=== PATIENT | male | born 1960 | race Caucasian/White ===

== ENCOUNTER 2019-07-10 13:57 | Emergency (ER) | payer OTHER ==
[~2019-07-10] VITALS: Ht 182.9 cm; Wt 63.3 kg
[~2019-07-10 13:57] MED LIST: ALEVE220 MG PO; CEFPODOXIME PR200 MG PO; CYCLOBENZAPRINE10 MG PO; IBUPROFEN600 MG PO; NAPROXEN500 MG PO; NICOTINE PATCH1 EAC1 TD; NORCO 5-325 TA1 EACH PO; PROAIR HFA8.5 GM INH
[2019-07-10] MEDS ORDERED: SPIRIVA18 MCG INH (14:11)
[2019-07-10] MEDS ORDERED: LIPITOR20 MG PO (14:11)
[2019-07-10] MEDS ORDERED: PROMETHAZINE HC25 M1 PO (15:48)
== END 2019-07-10 15:55 | disposition home or self-care (01) ==
LOC: ED 13:57
DX: K52.9 Noninfective gastroenteritis and colitis, unspecified (principal); I25.2 Old myocardial infarction; F17.200 Nicotine dependence, unspecified, uncomplicated; Z79.899 Other long term (current) drug therapy
CPT/HCPCS: 74177; 80053; 83690; 85025; 96361; 99284-25; J2270; J2765; J7030; Q9967

== ENCOUNTER 2019-11-15 14:18 | Emergency (ER) | payer OTHER ==
[~2019-11-15] VITALS: Ht 182.9 cm; Wt 63.0 kg
--- OUTSIDE RECORDS SUMMARY | ~2019-11-15 | XMS | Encounter Summary ---
Demographics + + + | Address | [address] | | | [place] [address] | + + + | Home Phone | | + + + | Preferred Language | Unknown | + + + | Marital Status | Unknown | + + + | Adventism Affiliation | 1013 | + + + | Race | Unknown | + + + | Ethnic Group | Unknown | + + + Author + + + | Author | [facility] | | | and [place] | + + + | Organization | [facility] | | | and [place] | + + + | Address | Unknown | + + + | Phone | Unavailable | + + + Support + + +---------+ + | Name | Relationship | Address | Phone | + + +---------+ + | Parisa Loyola | ECON | Unknown | | + + +---------+ + Care Team Providers + +------+ + | Care Overnight Babysitter Name | Role | Phone | + +------+ + | Isai Feng | PCP | | + +------+ + Reason for Visit +--------+ + | Reason | Comments | +--------+ + | Other | end of study | +--------+ + Encounter Details +--------+ + + + + | Date | Type | Department | Care Team | Description | +--------+ + + + + | 07/10/ | Documentati | [facility] | Yuli Guerrero, | Other (end of study) | | 2020 | on | CARDIOLOGY [facility]THE[facility] | Technologist | | | | | [address] | | | | | | [place], [place] | | | | | | [address] | | | | | | [phone] | | | +--------+ + + + + Social History + + + +--------+------+ | Tobacco Use | Types | Packs/Day | Years | Date | | | | | Used | | + + + +--------+------+ | Current Every Day | Cigarettes | 2 | 40 | | | Smoker | | | | | + + + +--------+------+ + +---+---+---+ | Smokeless Tobacco: | | | | | Never Used | | | | + +---+---+---+ + + | Comments: has tried the patches only, working on quitting, currently less than 1ppd | + + + + + + + | Alcohol Use | Drinks/Week | oz/Week | Comments | + + + + + | Yes | 6-12 Cans of beer | 6.0 - 12.0 | Frequently(more than | | | | | twice a week) | + + + + + + + + | Sex Assigned at | Date Recorded | | | | + + + | Not on file | | + + + documented as of this encounter Progress Notes Yuli Guerrero, Technologist - 07/10/2019 11:59 PM PST Cardiac Event Monitor Date of Event Monitor: 07/10/19 Referring Physician: No Patient:Isai Dolan : 1960 Age: 58 y.o. male INDICATIONS: Syncope and collapse Procedure: Continuous ambulatory ECG for the duration of 23 days 13 hours. During this rec ording, the underlying rhythm is sinus rhythm the lowest heart rate was 64 BPM, the highest heart rate 155 BPM, averaging 109 BPM. During this recording interval, there were 6 episode s of SVT the longest of which was 29 beats at 127 BPM, the fastest of which was 16 beats at 155BPM. Also, there were 2 episodes of NSVT the longest and fastest of which was 5 beats at 133BPM. No AV conduction abnormalities observed. The heart rate trends did demonstrate a n ormal circadian pattern. In the patient's diary, there was one episode of headache which co rrelated with isolated ventricular ectopy. Impressions: 1: Sinus rhythm, as described above. 2: No clinically significant arrhythmias detected. 3: No AV conduction abnormality detected. 4: There was one episode of headache which correlated with isolated ventricular ectopy. Recomendations: Clinical correlation suggested. Cally Mishra DO documented in this enco unter Plan of Treatment Not on filedocumented as of this encounter Visit Diagnoses + + | Diagnosis | + + | Syncope and collapse | + + documented in this encounter"
--- OUTSIDE RECORDS SUMMARY | ~2019-11-15 | XMS | Encounter Summary ---
Demographics + + + | Address | [address] | | | [place] [address] | + + + | Home Phone | | + + + | Preferred Language | Unknown | + + + | Marital Status | Unknown | + + + | Oriental Orthodox Affiliation | 1013 | + + + | Race | Unknown | + + + | Ethnic Group | Unknown | + + + Author + + + | Author | [facility] | | | and [place] | + + + | Organization | [facility] | | | and [place] | + + + | Address | Unknown | + + + | Phone | Unavailable | + + + Support + + +---------+ + | Name | Relationship | Address | Phone | + + +---------+ + | Parisa Jasso ECON | Unknown | | + + +---------+ + Care Team Providers + +------+ + | Care Salvage Machine Operator Name | Role | Phone | + +------+ + | Panda Ma NP | PCP | | + +------+ + Encounter Details +--------+ + + + + | Date | Type | Department | Care Team | Description | +--------+ + + + + | 12/15/ | Hospital | [facility] | [place], | COPD exacerbation | | 2015 | Encounter | [facility] | Vanna Matamoros MD | ([facility]) | | | | FUNCTION [address] | | | | | | [place], | | | | | | [place] [address] | | | | | | [phone] | | | +--------+ + + + [...] of beer | 6.0 - 12.0 | | + + + + + + + + | Sex Assigned at | Date Recorded | | | | + + + | Not on file | | + + + documented as of this encounter Medications at Time of Discharge + + + +---------+ + + | Medication | Sig | Dispensed | Refills | Start | End Date | | | | | | Date | | + + + +---------+ + + | albuterol 90 | Inhale 2 puffs into | | 0 | | | | mcg/puff inhaler | the lungs 4 times | | | | | | | daily. | | | | | + + + +---------+ + + | tiotropium | Inhale 18 mcg into | | 0 | | | | (SPIRIVA HANDIHALER) | the lungs Daily. | | | | | | 18 mcg inhalation | | | | | | | capsule | | | | | | + + + +---------+ + + | | Inhale 1 puff into | 1 each | 11 | 12/16/19 | | | fluticasone-vilanter | the lungs Daily. | | | 15 | 9 | | ol (BREO ELLIPTA) | | | | | | | 100-25 mcg/puff | | | | | | | inhaler | | | | | | + + + +---------+ + + | ibuprofen (ADVIL, | Take 400-600 mg by | | 0 | | | | MOTRIN) 200 mg | mouth every 6 hours | | | | 9 | | tablet | as needed for Pain. | | | | | + + + +---------+ + + | metoprolol | Take 50 mg by mouth | | 0 | | | | tartrate (LOPRESSOR) | 2 times daily. | | | | 9 | | 50 mg tablet | | | | | | + + + +---------+ + + documented as of this encounter Procedure Vanna Liang MD - 12/20/2014 8:43 PM PDTAssociated Order(s): PFT PULMONARY FUNCT ION TESTING ORDERSProcedure(s): PFT PULMONARY FUNCTION TESTING ORDERSPre-Procedure Diagnose( s): COPD exacerbation (HCC) PULMONARY FUNCTION TESTING METHOD: Spirometry was obtained pre and post administration of inhaled bronchodilator. Lung volumes were obtained by body plethysmography. Diffusion capacity was obtained by single br eath method and was not corrected for a measured hemoglobin. ATS standards were met. SPIROMETRY: Prior to administration of inhaled bronchodilator, FVC was normal at 4.54 L or 85% of predicted. FEV1 was mildly reduced at 2.81 L or 69% of predicted. FEV1/FVC ratio was reduced at 62%. After administration of inhaled bronchodilator, FVC decreased by 4 % to 4.35 L or 82% of predicted. FEV1 decreased by 10 % to 2.52 L or 62% of predicted. FEV1/FVC ratio was reduced at 58%. LUNG VOLUMES: Total lung capacity was normal at 6.51 L or 88% of predicted. Residual volume was normal at 1.97 L or 89% of predicted. RV/TLC ratio was normal at 30% or 99 % of predict ed. DIFFUSION CAPACITY: Diffusion capacity was severely reduced at 13.6 mL/mmHg per minute or 3 6% of predicted and was not corrected for a measured hemoglobin. IMPRESSION: Spirometry is consistent with moderate obstructive physiology. There was not a significant response to inhaled bronchodilator. Lung volume testing is normal. Diffusion cap acity is severely reduced and is not corrected for measured hemoglobin. Electronically signed by: Vanna Whipple MD 12/20/2014 20:43 [facility] CC: Panda Ma NP documented in t his encounter Plan of Treatment Not on filedocumented as of this encounter Procedures + +--------+ + + + | Procedure Name | Priori | Date/Time | Associated Diagnosis | Comments | | | ty | | | | + +--------+ + + + | PFT PULMONARY | KENA | 12/20/2014 | COPD exacerbation | Results for this | | FUNCTION TESTING | | 8:52 PM | (HCC) | procedure are in the | | ORDERS | | PDT | | results section. | + +--------+ + + + | PFT PULMONARY | KENA | 12/20/2014 | COPD exacerbation | Results for this | | FUNCTION TESTING | | 8:52 PM | (HCC) | procedure are in the | | ORDERS | | PDT | | results section. | + +--------+ + + + | PFT PULMONARY | KENA | 12/20/2014 | COPD exacerbation | Results for this | | FUNCTION TESTING | | 8:52 PM | (HCC) | procedure are in the | | ORDERS | | PDT | | results section. | + +--------+ + + + | PFT PULMONARY | KENA | 12/20/2014 | COPD exacerbation | Results for this | | FUNCTION TESTING | | 8:52 PM | ([facility]) | procedure are in the | | ORDERS | | PDT | | results section. | + +--------+ + + + | DIAGNOSTIC REPORT - | | 12/15/2014 | | | | EXTERNAL SCAN | | 12:00 AM | | | | | | PDT | | | + +--------+ + + + documented in this encounter Results PFT PULMONARY FUNCTION TESTING ORDERS Full PFT (Willie w/BD, lung volumes, diffusion)?: Yes (12/20/2014 8:52 PM PDT) + + + | Narrative | Performed At | + + + | Vanna Whipple MD 12/20/2014 20:52 PULMONARY | | | FUNCTION TESTING METHOD: Spirometry was obtained pre and post | | | administration of inhaled bronchodilator. Lung volumes were obtained | | | by body plethysmography. Diffusion capacity was obtained by single | | | breath method and was not corrected for a measured hemoglobin. | | | ATS standards were met. SPIROMETRY: Prior to administration of | | | inhaled bronchodilator, FVC was normal at 4.54 L or 85% of | | | predicted. FEV1 was mildly reduced at 2.81 L or 69% of predicted. | | | FEV1/FVC ratio was reduced at 62%. After administration of inhaled | | | bronchodilator, FVC decreased by 4 % to 4.35 L or 82% of predicted. | | | FEV1 decreased by 10 % to 2.52 L or 62% of predicted. FEV1/FVC ratio | | | was reduced at 58%. LUNG VOLUMES: Total lung capacity was | | | normal at 6.51 L or 88% of predicted. Residual volume was normal at | | | 1.97 L or 89% of predicted. RV/TLC ratio was normal at 30% or 99 % | | | of predicted. DIFFUSION CAPACITY: Diffusion capacity was severely | | | reduced at 13.6 mL/mmHg per minute or 36% of predicted and was not | | | corrected for a measured hemoglobin. IMPRESSION: Spirometry is | | | consistent with moderate obstructive physiology. There was not a | | | significant response to inhaled bronchodilator. Lung volume testing | | | is normal. Diffusion capacity is severely reduced and is not | | | corrected for measured hemoglobin. Electronically signed by: | | | Vanna Whipple MD 12/20/2014 20:43 [facility] | | | [facility] CC: Panda Ma NP | | + + + documented in this encounter Visit Diagnoses + + | Diagnosis | + + | COPD exacerbation (HCC) Obstructive chronic bronchitis with exacerbation | + + documented in this encounter Administered Medications + +--------+ +--------+------+------+ | Medication Order | MAR | Action | Dose | Rate | Site | | | Action | Date | | | | + +--------+ +--------+------+------+ | albuterol 2.5 mg/3 mL nebulizer | Given | 12/16/19 | 2.5 mg | | | | solution 2.5 mg 2.5 mg, | | 15 12:20 | | | | | Nebulization, RT Once, [facility] 12/15/14 | | PM PDT | | | | | at 1245, For 1 dose, RT will | | | | | | | administer., | | | | | | + +--------+ +--------+------+------+ +---+---+ | | | +---+---+ documented in this encounter"
--- OUTSIDE RECORDS SUMMARY | ~2019-11-15 | XMS | Encounter Summary ---
Demographics + + + | Address | [address] | | | [place] [address] | + + + | Home Phone | | + + + | Preferred Language | Unknown | + + + | Marital Status | Unknown | + + + | Advent Affiliation | 1013 | + + + | Race | Unknown | + + + | Ethnic Group | Unknown | + + + Author + + + | Author | [facility] | | | and [place] | + + + | Organization | [facility] | | | and [place] | + + + | Address | Unknown | + + + | Phone | Unavailable | + + + Support + + +---------+ + | Name | Relationship | Address | Phone | + + +---------+ + | Parisa Mcdanielugh | ECON | Unknown | | + + +---------+ + Care Team Providers + +------+ + | Care Bakery Worker Name | Role | Phone | + +------+ + | Isai Feng | PCP | | + +------+ + Encounter Details +--------+ + + + + | Date | Type | Department | Care Team | Description | +--------+ + + + + | 02/25/ | Imaging | [facility] | Provider, | | | 2019 | Exam | [facility] | Historical, MD [address] | | | | | [address] | [address] | | | | | [address] | [place] [address] | | | | | [place] [address] | | | | | | [phone] | | | +--------+ + + + [...] + + documented as of this encounter Plan of Treatment Not on filedocumented as of this encounter Procedures + +--------+ + + + | Procedure Name | Priori | Date/Time | Associated Diagnosis | Comments | | | ty | | | | + +--------+ + + + | CT CHEST W CONTRAST | Routin | 04/30/2016 | | Results for this | | | e | 12:00 AM | | procedure are in the | | | | PST | | results section. | + +--------+ + + + documented in this encounter Results CT Chest w Contrast (04/30/2016 12:00 AM PST) + + | Specimen | + + | | + + + + + | Narrative | Performed At | + + + | External films for comparison only | [facility] | | | | | No results will be in the chart. | | + + + + +---------+ + + | Performing | Address | City/State/Zipcode | Phone Number | | Organization | | | | + +---------+ + + | [facility] | | | | + +---------+ + + documented in this encounter Visit Diagnoses Not on filedocumented in this encounter"
--- OUTSIDE RECORDS SUMMARY | ~2019-11-15 | XMS | Encounter Summary ---
Demographics + + + | Address | [address] | | | [place] [address] | + + + | Home Phone | | + + + | Preferred Language | Unknown | + + + | Marital Status | Unknown | + + + | Voodoo Affiliation | 1013 | + + + | Race | Unknown | + + + | Ethnic Group | Unknown | + + + Author + + + | Author | [facility] | | | and [place] | + + + | Organization | [facility] | | | and [place] | + + + | Address | Unknown | + + + | Phone | Unavailable | + + + Support + + +---------+ + | Name | Relationship | Address | Phone | + + +---------+ + | Parisa Ruedaugh | ECON | Unknown | | + + +---------+ + Care Team Providers + +------+ + | Care Color Room Attendant Name | Role | Phone | + +------+ + | Provider Not, In System | PCP | Unavailable | + +------+ + Encounter Details +--------+ + + + + | Date | Type | Department | Care Team | Description | +--------+ + + + + | 11/09/ | Orders Only | [facility] | [place], | COPD exacerbation | | 2014 | | PULMONARY [address] | Vanna Matamoros MD | ([facility]) (Primary Dx) | | | | [place], | | | | | | [place] [address] | | | | | | [phone] | | | +--------+ + + + + Social History + +-------+ +--------+------+ | Tobacco Use | Types | Packs/Day | Years | Date | | | | | Used | | + +-------+ +--------+------+ | Never Assessed | | | | | + +-------+ +--------+------+ + + + | Sex Assigned at | Date Recorded | | | | + + + | Not on file | | + + + documented as of this encounter Plan of Treatment Not on filedocumented as of this encounter Results PFT PULMONARY FUNCTION TESTING ORDERS Full PFT ([place]oll[place] w/BD, lung volumes, diffusion)?: Yes (12/20/2014 8:52 [...] | | Vanna Whipple MD 12/20/2014 20:43 [facility] | | | [facility] CC: Panda aM NP | | + + + documented in this encounter Visit Diagnoses + + | Diagnosis | + + | COPD exacerbation (HCC) - Primary Obstructive chronic bronchitis with exacerbation | + + documented in this encounter"
--- OUTSIDE RECORDS SUMMARY | ~2019-11-15 | XMS | Encounter Summary ---
Demographics + + + | Address | [address] | | | [place] [address] | + + + | Home Phone | | + + + | Preferred Language | Unknown | + + + | Marital Status | Unknown | + + + | Christian Affiliation | 1013 | + + + | Race | Unknown | + + + | Ethnic Group | Unknown | + + + Author + + + | Author | [facility] | | | and [place] | + + + | Organization | [facility] | | | and [place] [...] Team Providers + +------+ + | Care Product Assembler Name | Role | Phone | + +------+ + | Provider Not, In System | PCP | Unavailable | + +------+ + Encounter Details +--------+ + + + + | Date | Type | Department | Care Team | Description | +--------+ + + + + | 11/16/ | Abstract | [facility] [place] | [place], | | | 2015 | | PULMONARY [address] | Vanna Matamoros MD | | | | | [place], | | | | | | [place] [address] | | | | | | [phone] | | | +--------+ + + + + Social History + + + +--------+------+ | Tobacco Use | Types | Packs/Day | Years | Date | | | | | Used | | + + + +--------+------+ | Current Every Day | Cigarettes | | | | | Smoker | | | | | + + + +--------+------+ + + | Comments: 03/01 cigarettes a day | + + + + + + + | Alcohol Use | Drinks/Week | oz/Week | Comments | + + + + + | Yes | 14-21 Cans of beer | 14.0 - 21.0 | | + + + + + + + + | Sex Assigned at | Date Recorded | | | | + + + | Not on file | | + + + documented as of this encounter Plan of Treatment Not on filedocumented as of this encounter Visit Diagnoses Not on filedocumented in this encounter"
--- OUTSIDE RECORDS SUMMARY | ~2019-11-15 | XMS | Encounter Summary ---
Demographics + + + | Address | [address] | | | [place] [address] | + + + | Home Phone | | + + + | Preferred Language | Unknown | + + + | Marital Status | Unknown | + + + | Sikhism Affiliation | 1013 | + + + | Race | Unknown | + + + | Ethnic Group | Unknown | + + + Author + + + | Author | [facility] | | | and [place] | + + + | Organization | [facility] | | | and [place] | + + + | Address | Unknown | + + + | Phone | Unavailable | + + + Support + + +---------+ + | Name | Relationship | Address | Phone | + + +---------+ + | Parisa ROBERTS | Unknown | | + + +---------+ + Care Team Providers + +------+ + | Care Mortgage Closer Name | Role | Phone | + +------+ + | Isai Feng | PCP | | + +------+ + Reason for Visit +--------+--------+ + | Reason | Onset | Comments | | | Date | | +--------+--------+ + | Other | 03/14/ | Symbicort | | | 2019 | | +--------+--------+ + Encounter Details +--------+ + + + + | Date | Type | Department | Care Team | Description | +--------+ + + + + | 03/14/ | Telephone | [facility] | Leora Bhagat | Other (Symbicort) | | 2018 | | PULMONARY [address] | MD [place] [address] | | | | | [place], | [address] [place] | | | | | [place] [address] | [place] [address] | | | | | [phone] | [phone] | | | | | | | | +--------+ + + + [...] + + documented as of this encounter Miscellaneous Notes Telephone Encounter - Conchita Christianson RN - 03/14/2019 2:26 PM PDTCalled Isai and jefferson rmed that his insurance would not cover the Symbicort so Dr Bhagat is recommending that he tr y generic fluticasone/salmeterol which is on formulary. Okay per patient. Prescription sent to [facility] in [place]. documented in this encounter Plan of Treatment Not on filedocumented as of this encounter Visit Diagnoses Not on filedocumented in this encounter"
--- OUTSIDE RECORDS SUMMARY | ~2019-11-15 | XMS | Encounter Summary ---
Demographics + + + | Address | [address] | | | [place] [address] | + + + | Home Phone | | + + + | Preferred Language | Unknown | + + + | Marital Status | Unknown | + + + | Zoroastrianism Affiliation | 1013 | + + + | Race | Unknown | + + + | Ethnic Group | Unknown | + + + Author + + + | Author | [facility] | | | and [place] | + + + | Organization | [facility] | | | and [place] | [...] Team Providers + +------+ + | Care Knife Sharpener Name | Role | Phone | + +------+ + | Panda Ma NP | PCP | | + +------+ + Reason for Visit +--------+--------+ + | Reason | Onset | Comments | | | Date | | +--------+--------+ + | Other | 12/22/ | testing | | | 2015 | | +--------+--------+ + Encounter Details +--------+ + + + + | Date | Type | Department | Care Team | Description | +--------+ + + + + | 12/22/ | Telephone | [facility] [place] | [place], | Other (testing ) | | 2014 | | PULMONARY [address] | Vanna Matamoros MD | | | | | [place], | | | | | | [place] [address] | | | | | | [phone] | | | +--------+ + + + [...] this encounter Miscellaneous Notes Telephone Encounter - Vanna Whipple MD - 12/22/2014 12:32 PM PDTThanks for kristofer nair. elephone Encounter - Abigail Tiwari - 12/22/2014 11:24 AM [facility] called to let you know as an FYI that at this time they have not been able to get Jessa an oximeter for have his overnight oximetry on roomair. Arielle states that on Sunday12-18-14 they attempted to go to [facility] to drop off an oximeter per the patients request, patient was not ho me. yesterday 12-21-14 they attempted to drop of an oximeter to the patient 2 times but were unable to catch jessa at home. Patient called [facility] today 12-22-14 and asked where they were F riday and stated that he is to busy to come in an continuous pickling line pickler the oximeter and if they are catch him at home they catch him at home. documented in this encounter Plan of Treatment Not on filedocumented as of this encounter Visit Diagnoses Not on filedocumented in this encounter"
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
--- OUTSIDE RECORDS SUMMARY | ~2019-11-15 | XMS | Encounter Summary ---
Demographics + + + | Address | [address] | | | [place] [address] | + + + | Home Phone | | + + + | Preferred Language | Unknown | + + + | Marital Status | Unknown | + + + | Congregational Affiliation | 1013 | + + + | Race | Unknown | + + + | Ethnic Group | Unknown | + + + Author + + + | Author | [facility] | | | and [place] | + + + | Organization | [facility] | | | and [place] | + + + | Address | Unknown | + + + | Phone | Unavailable | + + + Support + + +---------+ + | Name | Relationship | Address | Phone | + + +---------+ + | Parisa Milla | ECON | Unknown | | + + +---------+ + Care Team Providers + +------+ + | Care Hand Outside Cutter Name | Role | Phone | + +------+ + | Provider Not, In System | PCP | Unavailable | + +------+ + Reason for Visit + +--------+ + | Reason | Onset | Comments | | | Date | | + +--------+ + | Appointment | 11/09/ | consult | | | 2015 | | + +--------+ + Encounter Details +--------+ + + + + | Date | Type | Department | Care Team | Description | +--------+ + + + + | 11/09/ | Telephone | [facility] | [place], | Appointment | | 2015 | | PULMONARY [address] | Vanna Matamoros MD | (consult) | | | | [place], | | | | | | [place] [address] | | | | | | [phone] | | | +--------+ + + + [...] this encounter Miscellaneous Notes Telephone Encounter - Leila Tovar - 11/17/2014 3:05 PM PDTPatient is scheduledElectroni murtaza signed by Leila Tovar at 11/17/2014 3:05 PM PDTTelephone Encounter - Leslie Tiwari - 11/09/2014 2:16 PM PDTCorrection: Left voice message to schedule patient a LEAD DATA ARCHITECT con sult with Dr. Whipple. If patient is to call back please schedule in the next available w ith Fill PFTS prior. Dx: COPD Ref: Yuli GONZALEZ elephone Encounter - Abigail Tiwari - 11/09/2014 2:15 PM PDTLeft voice message to schedule patient a N P consult with Dr. Whipple. If patient is to call back please schedule in the next availa ble with Full PFTS prior. DX: COPD REF: Paty documented in this encounter Plan of Treatment Not on filedocumented as of this encounter Visit Diagnoses Not on filedocumented in this encounter"
--- OUTSIDE RECORDS SUMMARY | ~2019-11-15 | XMS | Encounter Summary ---
Demographics + + + | Address | [address] | | | [place] [address] | + + + | Home Phone | | + + + | Preferred Language | Unknown | + + + | Marital Status | Unknown | + + + | Scientology Affiliation | 1013 | + + + | Race | Unknown | + + + | Ethnic Group | Unknown | + + + Author + + + | Author | [facility] | | | and [place] | + + + | Organization | [facility] | | | and [...] Team Providers + +------+ + | Care Anesthetic Assistant Name | Role | Phone | + +------+ + | Isai Feng | PCP | | + +------+ + Reason for Visit +--------+--------+ + | Reason | Onset | Comments | | | Date | | +--------+--------+ + | Other | 07/20/ | advice only | | | 2020 | | +--------+--------+ + Encounter Details +--------+ + + + + | Date | Type | Department | Care Team | Description | +--------+ + + + + | 07/20/ | Telephone | [facility] | aClly Mishra DO | Other (advice only) | | 2020 | | CARDIOLOGY DEMETRIS | [address] | | | | | [address] | [place], [place] | | | | | [place], [place] | [address] | | | | | [address] | | | | | | [phone] | | | +--------+ + + + [...] this encounter Miscellaneous Notes Telephone Encounter - Kalani Morales, Bone Grinder - 07/21/2019 9:56 AM PDTReceived phone call from Anneliese at [facility] who advises that patient contacted [facility] to inform th at 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 Per Anneliese, patient states he "does too many things on the weekends" and will only be wearing the monitor Sunday thru Sunday. FYI. documented in this encounter Plan of Treatment Not on filedocumented as of this encounter Visit Diagnoses Not on filedocumented in this encounter
--- OUTSIDE RECORDS SUMMARY | ~2019-11-15 | XMS | Encounter Summary ---
Demographics + + + | Address | [address] | | | [place] [address] | + + + | Home Phone | | + + + | Preferred Language | Unknown | + + + | Marital Status | Unknown | + + + | Taoism Affiliation | 1013 | + + + | Race | Unknown | + + + | Ethnic Group | Unknown | + + + Author + + + | Author | [facility] | | | and [place] | + + + | Organization | [facility] | | | and [place] [...] Team Providers + +------+ + | Care Property Controller Name | Role | Phone | + +------+ + | Isai Feng | PCP | | + +------+ + Reason for Referral Diagnostic/Screening (Routine) +--------+--------+ + + + + | Status | Reason | Specialty | Diagnoses / | Referred By | Referred To | | | | | Procedures | Contact | Contact | +--------+--------+ + + + + | Closed | | Radiology | Diagnoses | Leora Bhagat | [address] | | | | | Personal | MD [place] | [address] | | | | | history of | [address] | [place], | | | | | tobacco use | [address] | [place] [address] | | | | | Procedures | [place], | Phone: | | | | | CT Chest | [place] [address] | [phone] | | | | | Lung Cancer | Phone: | Fax: | | | | | Screening | [phone] | [phone] | | | | | DOS 05/09/19 | Fax: | | | | | | | [phone] | | +--------+--------+ + + + + Reason for Visit Diagnostic/Screening (Routine) +--------+--------+ + + + + | Status | Reason | Specialty | Diagnoses / | Referred By | Referred To | | | | | Procedures | Contact | Contact | +--------+--------+ + + + + | Closed | | Radiology | Diagnoses | Leora Bhagat | [address] | | | | | Personal | MD [place] | [place] | | | | | history of | [address] | [place], | | | | | tobacco use | [address] | [place] [address] | | | | | Procedures | [place], | Phone: | | | | | CT Chest | [place] [address] | [phone] | | | | | Lung Cancer | Phone: | Fax: | | | | | Screening | [phone] | [phone] | | | | | DOS 05/09/19 | Fax: | | | | | | | [phone] | | +--------+--------+ + + + + Encounter Details +--------+ + + + + | Date | Type | Department | Care Team | Description | +--------+ + + + + | 05/09/ | Hospital | [facility] | Leora Bhagat | Personal history of | | 2019 | Encounter | MED [facility] [address] | MD [place] [address] | tobacco use | | | | [place], | [address] [place] | | | | | [place] [address] | [place] [address] | | | | | [phone] | [phone] | | | | | | | [...] + + + +---------+ + + | aspirin 325 mg | Take 325 mg by mouth | | 0 | | | | tablet | Daily. | | | | | + + + +---------+ + + | atorvaSTATin | Take 20 mg by mouth | | 0 | 10/10/20 | | | (LIPITOR) 20 mg | Daily. | | | 19 | | | tablet | | | | | | + + + +---------+ + + | CHANTIX STARTING | | | 0 | 01/29/20 | | | MONTH KINJAL 0.5 MG X | | | | 19 | | | 11 & 1 MG X 42 | | | | | | | tablet | | | | | | + + + +---------+ + + | COMBIVENT RESPIMAT | Inhale 1 puff into | | 0 | 01/29/20 | | | 20-100 MCG/ACT | the lungs 2 times | | | 19 | | | inhaler | daily. | | | | | + + + +---------+ + + | | Inhale 1 puff into | 1 each | 11 | 03/14/20 | | | fluticasone-salmeter | the lungs 2 times | | | 19 | | | ol (NEREYDA SAHU | daily. | | | | | | INHUB) 250-50 | | | | | | | mcg/puff diskus | | | | | | | inhaler | | | | | | + + + +---------+ + + | | | | 0 | 04/14/20 | | | HYDROcodone-acetamin | | | | 19 | | | ophen (NORCO) 5-325 | | | | | | | mg per tablet | | | | | | + + + +---------+ + + | Spacer/Aero-Hold | Use with MDI inhaler | 1 each | 4 | 03/10/20 | | | Chamber Bags | as needed. | | | 19 | | | MISCIndications: | | | | | | | Chronic obstructive | | | | | | | pulmonary disease, | | | | | | | unspecified COPD | | | | | | | type (HCC) | | | | | | + + + +---------+ + + | tiotropium | Inhale 18 mcg into | | 0 | | | | (SPIRIVA HANDIHALER) | the lungs Daily. | | | | | | 18 mcg inhalation | | | | | | | capsule | | | | | | + + + +---------+ + + | LORazepam (ATIVAN) | TAKE 2 TABLETS BY | | 0 | 04/12/20 | | | 1 mg tablet | MOUTH IN THE EVENING | | | 19 | 0 | | | BEFORE BED AND TAKE | | | | | | | 2 TABLETS BY MOUTH | | | | | | | ONE HOUR BEFORE | | | | | | | APPOINTMENT | | | | | + + + +---------+ + + | naproxen | Take 250 mg by mouth | | 0 | | | | (NAPROSYN) 250 mg | 2 times daily (with | | | | 0 | | tablet | breakfast & | | | | | | | dinner). | | | | | + + + +---------+ + + | SPIRIVA RESPIMAT | Inhale 2 puffs into | | 0 | 02/21/20 | | | 2.5 MCG/ACT inhaler | the lungs 2 times | | | 19 | 0 | | | daily. | | | | | + + + +---------+ + + documented as of this encounter Plan of Treatment + +---------+--------+ + + | Name | Type | Priori | Associated Diagnoses | Order Schedule | | | | ty | | | + +---------+--------+ + + | CT Chest Lung Cancer | Imaging | Routin | Personal history | 1 Occurrences | | Screening | | e | of tobacco use | starting 05/09/2019 | | | | | | until 05/09/2019 | + +---------+--------+ + + documented as of this encounter Visit Diagnoses + + | Diagnosis | + + | Personal history of tobacco use Personal history of tobacco use, presenting hazards | | to health | + + documented in this encounter"
--- OUTSIDE RECORDS SUMMARY | ~2019-11-15 | XMS | Encounter Summary ---
Demographics + + + | Address | [address] | | | [place] [address] | + + + | Home Phone | | + + + | Preferred Language | Unknown | + + + | Marital Status | Unknown | + + + | Congregation Affiliation | 1013 | + + + | Race | Unknown | + + + | Ethnic Group | Unknown | + + + Author + + + | Author | [facility] | | | and [place] | + + + | Organization | [facility] | | | and [place] [...] Team Providers + +------+ + | Care Shot Hole Driller Name | Role | Phone | + +------+ + | Yuli Feng | PCP | | + +------+ + Encounter Details +--------+ + + + + | Date | Type | Department | Care Team | Description | +--------+ + + + + | 12/27/ | Abstract | [facility] | Kelechi Zapata, | | | 2016 | | NEUROSURGERY [address] | PA-C [address] | | | | [address] | [address] [place] | | | | | [place], [place] | [place] [address] | | | | | [address] | [phone] | | | | | [phone] | | | +--------+ + + + [...]
--- OUTSIDE RECORDS SUMMARY | ~2019-11-15 | XMS | Encounter Summary ---
Demographics + + + | Address | [address] | | | [place] [address] | + + + | Home Phone | | + + + | Preferred Language | Unknown | + + + | Marital Status | Unknown | + + + | Muslim Affiliation | 1013 | + + + | Race | Unknown | + + + | Ethnic Group | Unknown | + + + Author + + + | Author | [facility] | | | and [place] | + + + | Organization | [facility] | | | and [place] | + + + | Address | Unknown | + + + | Phone | Unavailable | + + + Support + + +---------+ + | Name | Relationship | Address | Phone | + + +---------+ + | Parisa Looyla | ECON | Unknown | | + + +---------+ + Care Team Providers + +------+ + | Care Product Design Engineer Name | Role | Phone | + +------+ + | Isai Feng | PCP | | + +------+ + Encounter Details +--------+ + + + + | Date | Type | Department | Care Team | Description | +--------+ + + + + | 07/16/ | Imaging | [facility] | Provider, | | | 2020 | Exam | [facility]TER[facility] | Historical, MD [address] | | | | | IMAGING [address] | [address] | | | | | [address] | [place] [address] | | | | | [place] [address] | | | | | | [phone] | | | +--------+ + + + [...] | + +--------+ + + + | ECHO COMPLETE | Routin | 12/11/2014 | | Results for this | | | e | 12:00 AM | | procedure are in the | | | | PDT | | results section. | + +--------+ + + + documented in this encounter Results ECHO Complete (12/11/2014 12:00 AM PDT) + + | Specimen | + + [...]
--- OUTSIDE RECORDS SUMMARY | ~2019-11-15 | XMS | Encounter Summary ---
Demographics + + + | Address | [address] | | | [place] [address] | + + + | Home Phone | | + + + | Preferred Language | Unknown | + + + | Marital Status | Unknown | + + + | Latter Day Affiliation | 1013 | + + + | Race | Unknown | + + + | Ethnic Group | Unknown | + + + Author + + + | Author | [facility] | | | and [place] | + + + | Organization | [facility] | | | and [...] Team Providers + +------+ + | Care Sap Grc Security Name | Role | Phone | + +------+ + | Panda Ma NP | PCP | | + +------+ + Encounter Details +--------+ + + + + | Date | Type | Department | Care Team | Description | +--------+ + + + + | 12/15/ | Orders Only | [facility] | Conchita Christianson, | COPD (chronic | | 2015 | | PULMONARY [address] | RN | obstructive | | | | [place], | | pulmonary disease) | | | | [place] [address] | | ([facility]) | | | | [phone] | | | +--------+ + + + [...] | Diagnosis | + + | COPD (chronic obstructive pulmonary disease) (HCC) Chronic airway obstruction, not | | elsewhere classified | + + documented in this encounter"
--- OUTSIDE RECORDS SUMMARY | ~2019-11-15 | XMS | Encounter Summary ---
Demographics + + + | Address | [address] | | | [place] [address] | + + + | Home Phone | | + + + | Preferred Language | Unknown | + + + | Marital Status | Unknown | + + + | Roman Catholic Affiliation | 1013 | + + + | Race | Unknown | + + + | Ethnic Group | Unknown | + + + Author + + + | Author | [facility] | | | and [place] | + + + | Organization | [facility] | | | and [...] Team Providers + +------+ + | Care Hot Dog Vendor Name | Role | Phone | + [...] | | | | [address]IL[address] | [place] [address] | | | | | [place] [address] | | | | | | [phone] | | | +--------+ + + + [...] | + +--------+ + + + | XR CHEST 1 VIEW | Routin | 09/02/2015 | | Results for this | | | e | 12:00 AM | | procedure are in the | | | | PDT | | results section. | + +--------+ + + + documented in this encounter Results XR Chest 1 Vw (09/02/2015 12:00 AM PDT) + + | Specimen [...]
--- OUTSIDE RECORDS SUMMARY | ~2019-11-15 | XMS | Encounter Summary ---
Demographics + + + | Address | [address] | | | [place] [address] | + + + | Home Phone | | + + + | Preferred Language | Unknown | + + + | Marital Status | Unknown | + + + | Religion Affiliation | 1013 | + + + | Race | Unknown | + + + | Ethnic Group | Unknown | + + + Author + + + | Author | [facility] | | | and [place] | + + + | Organization | [facility] | | | and [place] [...] Team Providers + +------+ + | Care Mental Health Tech Name | Role | Phone | + +------+ + | Yuli Feng | PCP | | + +------+ + Encounter Details +--------+ + + + + | Date | Type | Department | Care Team | Description | +--------+ + + + + | 11/30/ | Orders Only | [facility] [place] | Cali Johnson, | Neck pain (Primary | | 2017 | | NEUROSURGERY [address] | DO [address] | Dx) | | | | [address] | [address] [place], [place] | | | | | [place], [place] | [address] | | | | | [address] | | | | | | [phone] | | | +--------+ + + + [...] | | + +---------+--------+ + + | XR Cervical Spine 4 | Imaging | Routin | Neck pain | Expected: | | or 5 Vws | | e | | 11/30/2016, Expires: | | | | | | 12/01/2017 | + +---------+--------+ + + documented as of this encounter Visit Diagnoses + + | Diagnosis | + + | Neck pain - Primary Cervicalgia | + + documented in this encounter"
--- OUTSIDE RECORDS SUMMARY | ~2019-11-15 | XMS | Encounter Summary ---
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 + | EXTERNAL LAB: CBC | Routin | 07/25/2014 | | Results for this | | | e | | | procedure are in the | | | | | | results section. | + +--------+ + + + | EXTERNAL LAB: | Routin | 07/25/2014 | | Results for this | | PROTIME INR | e | | | procedure are in the | | | | | | results section. | + +--------+ + + + | EXTERNAL LAB: EGFR | Routin | 07/25/2014 | | Results for this | | | e | | | procedure are in the | | | | | | results section. | + +--------+ + + + | EXTERNAL LAB: | Routin | 07/25/2014 | | Results for this | | CREATININE | e | | | procedure are in the | | | | | | results section. | + +--------+ + + + | RULE OUT MYOCARDIAL | Routin | 07/25/2014 | | Results for this | | INFARCTION | e | | | procedure are in the | | | | | | results section. | + +--------+ + + + | CBC WITH | Routin | 07/25/2014 | | Results for this | | DIFFERENTIAL | e | | | procedure are in the | | | | | | results section. | + +--------+ + + + | ALCOHOL | Routin | 07/25/2014 | | Results for this | | | e | | | procedure are in the | | | | | | results section. | + +--------+ + + + | COMPREHENSIVE | Routin | 07/25/2014 | | Results for this | | METABOLIC PANEL | e | | | procedure are in the | | | | | | results section. | + +--------+ + + + documented in this encounter Results External Lab: ARA (10/13/2014) + + + + + + | Component | Value | Ref Range | Performed | Pathologist | | | | | At | Signature | + + + + + + | ARA, | 4.06Comment: mass | 0 - 7.7 | EXTERNAL | | | Total, | | | LAB | | | External | | | | | + + + + + + + + | Resulting Agency Comment | + + | [facility] | + + + +---------+ + + | Performing | Address | City/State/Zipcode | Phone Number | | Organization | | | | + +---------+ + + | EXTERNAL LAB | | | | + +---------+ + + External Lab: CBC (10/13/2014) + + + + + + | Component | Value | Ref Range | Performed | Pathologist | | | | | At | Signature | + + + + + + | WBC, | 8.2 | 4.6 - 11 | EXTERNAL | | | External | | | LAB | | + + + + + + | HGB, | 14.8 | 13.5 - 16 | EXTERNAL | | | External | | | LAB | | + + + + + + | HCT, | 47.1 | 41 - 50 | EXTERNAL | | | External | | | LAB | | + + + + + + | PLT, | 209 | 140 - 440 | EXTERNAL | | | External | | | LAB | | + + + + + + | Neutrophils | 70.1 | 39 - 80 | EXTERNAL | | | %, | | | LAB | | | External | | | | | + + + + + + | Lymphocytes | 19.3 (A) | 24 - 44 | EXTERNAL | | | %, | | | LAB | | | External | | | | | + + + + + + | Monocytes | 6.6 | 0 - 12 | EXTERNAL | | | %, External | | | LAB | | + + + + + + | Eosinophils | 3.9 | 0 - 6 | EXTERNAL | | | %, | | | LAB | | | External | | | | | + + + + + + | RBC, | 4.68 (A) | 4.8 - 5.7 | EXTERNAL | | | External | | | LAB | | + + + + + + | MCV, | 100 (A) | 81 - 99 | EXTERNAL | | | External | | | LAB | | + + + + + + | RDW, | 12.6 | 10.5 - 15 | EXTERNAL | | | External | | | LAB | | + + + + + + + + | Resulting Agency Comment | + + | [facility] | + + + +---------+ + + | Performing | Address | City/State/Zipcode | Phone Number | | Organization | | | | + +---------+ + + | EXTERNAL LAB | | | | + +---------+ + + External Lab: PAMELA (10/13/2014) + +-------+ + + + | Component | Value | Ref Range | Performed | Pathologist | | | | | At | Signature | + +-------+ + + + | BUN, | 10 | 6 - 23 | EXTERNAL | | | External | | | LAB | | + +-------+ + + + + + | Resulting Agency Comment | + + | [facility] | + + + +---------+ + + | Performing | Address | City/State/Zipcode | Phone Number | | Organization | | | | + +---------+ + + | EXTERNAL LAB | | | | + +---------+ + + External Lab: Glucose (10/13/2014) + +---------+ + + + | Component | Value | Ref Range | Performed | Pathologist | | | | | At | Signature | + +---------+ + + + | Glucose, | 111 (A) | 70 - 100 | EXTERNAL | | | External | | | LAB | | + +---------+ + + + + + | Resulting Agency Comment | + + | [facility] | + + + +---------+ + + | Performing | Address | City/State/Zipcode | Phone Number | | Organization | | | | + +---------+ + + | EXTERNAL LAB | | | | + +---------+ + + External Lab: Ck, Total (10/13/2014) + +---------+ + + + | Component | Value | Ref Range | Performed | Pathologist | | | | | At | Signature | + +---------+ + + + | CK, Total, | 278 (A) | 24 - 195 | EXTERNAL | | | External | | | LAB | | + +---------+ + + + + + | Resulting Agency Comment | + + | [facility] | + + + +---------+ + + | Performing | Address | City/State/Zipcode | Phone Number | | Organization | | | | + +---------+ + + | EXTERNAL LAB | | | | + +---------+ + + External Lab: Troponin T (10/13/2014) + +--------+ + + + | Component | Value | Ref Range | Performed | Pathologist | | | | | At | Signature | + +--------+ + + + | Troponin T, | <1.010 | 0.01 | EXTERNAL | | | External | | | LAB | | + +--------+ + + + + + | Resulting Agency Comment | + + | [facility] | + + + +---------+ + + | Performing | Address | City/State/Zipcode | Phone Number | | Organization | | | | + +---------+ + + | EXTERNAL LAB | | | | + +---------+ + + External Lab: ALT (10/13/2014) + +-------+ + + + | Component | Value | Ref Range | Performed | Pathologist | | | | | At | Signature | + +-------+ + + + | ALT, | 16 | 7 - 52 | EXTERNAL | | | External | | | LAB | | + +-------+ + + + + + | Resulting Agency Comment | + + | [facility] | + + + +---------+ + + | Performing | Address | City/State/Zipcode | Phone Number | | Organization | | | | + +---------+ + + | EXTERNAL LAB | | | | + +---------+ + + External Lab: AST (10/13/2014) + +-------+ + + + | Component | Value | Ref Range | Performed | Pathologist | | | | | At | Signature | + +-------+ + + + | AST, | 26 | 13 - 39 | EXTERNAL | | | External | | | LAB | | + +-------+ + + + + + | Resulting Agency Comment | + + | [facility] | + + + +---------+ + + | Performing | Address | City/State/Zipcode | Phone Number | | Organization | | | | + +---------+ + + | EXTERNAL LAB | | | | + +---------+ + + External Lab: Alkaline Phosphatase (10/13/2014) + +-------+ + + + | Component | Value | Ref Range | Performed | Pathologist | | | | | At | Signature | + +-------+ + + + | ALP, | 86 | 30 - 136 | EXTERNAL | | | External | | | LAB | | + +-------+ + + + + + | Resulting Agency Comment | + + | [facility] | + + + +---------+ + + | Performing | Address | City/State/Zipcode | Phone Number | | Organization | | | | + +---------+ + + | EXTERNAL LAB | | | | + +---------+ + + External Lab: Bilirubin, Total (10/13/2014) + +-------+ + + + | Component | Value | Ref Range | Performed | Pathologist | | | | | At | Signature | + +-------+ + + + | Bilirubin, | 0.6 | 0 - 1.2 | EXTERNAL | | | Total, | | | LAB | | | External | | | | | + +-------+ + + + + + | Resulting Agency Comment | + + | [facility] | + + + +---------+ + + | Performing | Address | City/State/Zipcode | Phone Number | | Organization | | | | + +---------+ + + | EXTERNAL LAB | | | | + +---------+ + + External Lab: Albumin (10/13/2014) + +-------+ + + + | Component | Value | Ref Range | Performed | Pathologist | | | | | At | Signature | + +-------+ + + + | Albumin, | 4.2 | 3.5 - 5 | EXTERNAL | | | External | | | LAB | | + +-------+ + + + + + | Resulting Agency Comment | + + | [facility] | + + + +---------+ + + | Performing | Address | City/State/Zipcode | Phone Number | | Organization | | | | + +---------+ + + | EXTERNAL LAB | | | | + +---------+ + + External Lab: Protein, Total (10/13/2014) + +-------+ + + + | Component | Value | Ref Range | Performed | Pathologist | | | | | At | Signature | + +-------+ + + + | Protein, | 6.6 | 6 - 8 | EXTERNAL | | | Total, | | | LAB | | | External | | | | | + +-------+ + + + + + | Resulting Agency Comment | + + | [facility] | + + + +---------+ + + | Performing | Address | City/State/Zipcode | Phone Number | | Organization | | | | + +---------+ + + | EXTERNAL LAB | | | | + +---------+ + + External Lab: Calcium (10/13/2014) + +-------+ + + + | Component | Value | Ref Range | Performed | Pathologist | | | | | At | Signature | + +-------+ + + + | Calcium, | 9.4 | 8.4 - 10.2 | EXTERNAL | | | External | | | LAB | | + +-------+ + + + + + | Resulting Agency Comment | + + | [facility] | + + + +---------+ + + | Performing | Address | City/State/Zipcode | Phone Number | | Organization | | | | + +---------+ + + | EXTERNAL LAB | | | | + +---------+ + + External Lab: Carbon Dioxide (10/13/2014) + +-------+ + + + | Component | Value | Ref Range | Performed | Pathologist | | | | | At | Signature | + +-------+ + + + | Carbon | 29 | 19 - 31 | EXTERNAL | | | Dioxide, | | | LAB | | | External | | | | | + +-------+ + + + + + | Resulting Agency Comment | + + | [facility] | + + + +---------+ + + | Performing | Address | City/State/Zipcode | Phone Number | | Organization | | | | + +---------+ + + | EXTERNAL LAB | | | | + +---------+ + + External Lab: Chloride (10/13/2014) + +-------+ + + + | Component | Value | Ref Range | Performed | Pathologist | | | | | At | Signature | + +-------+ + + + | Chloride, | 104 | 95 - 112 | EXTERNAL | | | External | | | LAB | | + +-------+ + + + + + | Resulting Agency Comment | + + | [facility] | + + + +---------+ + + | Performing | Address | City/State/Zipcode | Phone Number | | Organization | | | | + +---------+ + + | EXTERNAL LAB | | | | + +---------+ + + External Lab: Potassium (10/13/2014) + +-------+ + + + | Component | Value | Ref Range | Performed | Pathologist | | | | | At | Signature | + +-------+ + + + | Potassium, | 4.8 | 3.6 - 5.1 | EXTERNAL | | | External | | | LAB | | + +-------+ + + + + + | Resulting Agency Comment | + + | [facility] | + + + +---------+ + + | Performing | Address | City/State/Zipcode | Phone Number | | Organization | | | | + +---------+ + + | EXTERNAL LAB | | | | + +---------+ + + External Lab: Sodium (10/13/2014) + +-------+ + + + | Component | Value | Ref Range | Performed | Pathologist | | | | | At | Signature | + +-------+ + + + | Sodium, | 137 | 132 - 143 | EXTERNAL | | | External | | | LAB | | + +-------+ + + + + + | Resulting Agency Comment | + + | [facility] | + + + +---------+ + + | Performing | Address | City/State/Zipcode | Phone Number | | Organization | | | | + +---------+ + + | EXTERNAL LAB | | | | + +---------+ + + External Lab: eGFR (10/13/2014) + +-------+ + + + | Component | Value | Ref Range | Performed | Pathologist | | | | | At | Signature | + +-------+ + + + | eGFR, | >60 | 60 - 999,999 | EXTERNAL | | | External | | | LAB | | + +-------+ + + + + + | Specimen | + + | Blood specimen | | (specimen) | + + + + | Resulting Agency Comment | + + | [facility] | + + + +---------+ + + | Performing | Address | City/State/Zipcode | Phone Number | | Organization | | | | + +---------+ + + | EXTERNAL LAB | | | | + +---------+ + + External Lab: Creatinine (10/13/2014) + +-------+ + + + | Component | Value | Ref Range | Performed | Pathologist | | | | | At | Signature | + +-------+ + + + | Creatinine, | 0.82 | 0.7 - 1.33 | EXTERNAL | | | External | | | LAB | | + +-------+ + + + + + | Specimen | + + | Blood specimen | | (specimen) | + + + + | Resulting Agency Comment | + + | [facility] | + + + +---------+ + + | Performing | Address | City/State/Zipcode | Phone Number | | Organization | | | | + +---------+ + + | EXTERNAL LAB | | | | + +---------+ + + D-Dimer (10/13/2014) + +-------+ + + + | Component | Value | Ref Range | Performed | Pathologist | | | | | At | Signature | + +-------+ + + + | D-DIMER, | 100.0 | 400.0 ng/mL | [facility] | [facility] | | E | | | [facility] | | | | | | [facility] - | | | | | | LABORATORY | | + +-------+ + + + + + | Specimen | + + | Blood specimen | | (specimen) | + + + + + + + | Performing | Address | City/State/Zipcode | Phone Number | | Organization | | | | + + + + + | [facility] | [address] | [place] | [phone] | | [facility] | | [id number], [facility] | | | - LABORATORY | | | | + + + + + Rule Out Myocardial (10/13/2014) + + + + + + | Component | Value | Ref Range | Performed | Pathologist | | | | | At | Signature | + + + + + + | MYOGLOBIN | 42 | 169 ng/mL | [facility] | | | | | [facility] | | | | | | MEDICAL | | | | | | CENTER - | | | | | | LABORATORY | | + + + + + + | CK Index | 1.5 | | [facility] | | | | | [facility] | | | | | | MEDICAL | | | | | | CENTER - | | | | | | LABORATORY | | + + + + + + | CKMB, | Negative | | [facility] | | | Total, | | | [facility] | | | External | | | MEDICAL | | | | | | CENTER - | | | | | | LABORATORY | | + + + + + + + + | Specimen | + + | | + + + + + + + | Performing | Address | City/State/Zipcode | Phone Number | | Organization | | | | + + + + + | [facility] | [address] | [place] | [phone] | | [facility] | | [id number] | | | - LABORATORY | | | | + + + + + Comprehensive Metabolic Panel (10/13/2014) + +-------+ + + + | Component | Value | Ref Range | Performed | Pathologist | | | | | At | Signature | + +-------+ + + + | Anion Gap | 9 | mmol/L | [facility] | | | [facility] | | | | | | [facility]ICAL | | | | | | CENTER - | | | | | | LABORATORY | | + +-------+ + + + | BUN/Creatin | 12.2 | | [facility] | | | ine Ratio | | | [facility] | | | | | | MEDICAL | | | | | | CENTER - | | | | | | LABORATORY | | + +-------+ + + + | Globulin | 2.4 | | [facility] | | | | | | [facility] | | | | | | MEDICAL | | | | | | CENTER - | | | | | | LABORATORY | | + +-------+ + + + | Albumin/Zahira | 1.8 | | [facility] | | | bulin Ratio | | | [facility] | | | | | | MEDICAL | | | | | | CENTER - | | | | | | LABORATORY | | + +-------+ + + + + + | Specimen | + + | Blood specimen | | (specimen) | + + + + + + + | Performing | Address | City/State/Zipcode | Phone Number | | Organization | | | | + + + + + | [facility] | [address] | [place] | [phone] | | [facility] | | [id number] | | | - LABORATORY | | | | + + + + + CBC with Differential (10/13/2014) + +-------+ + + + | Component | Value | Ref Range | Performed | Pathologist | | | | | At | Signature | + +-------+ + + + | MCH | 32.0 | pg | | | + +-------+ + + + | M[facility]C | 31.0 | % | | | + +-------+ + + + | % Basophils | 0.1 | % | | | + +-------+ + + + | Erythrocyte | 2 | mm/hr | | | | | | | | | | Sedimentati | | | | | | on Rate | | | | | + +-------+ + + + + + | Specimen | + + | Blood specimen | | (specimen) | + + External Lab: CBC (07/25/2014 1:00 AM PDT) + +-------+ + + + | Component | Value | Ref Range | Performed | Pathologist | | | | | At | Signature | + +-------+ + + + | PLT, | 256 | 40 - 440 | EXTERNAL | | | External | | | LAB | | + +-------+ + + + + + | Resulting Agency Comment | + + | [facility] | + + + +---------+ + + | Performing | Address | City/State/Zipcode | Phone Number | | Organization | | | | + +---------+ + + | EXTERNAL LAB | | | | + +---------+ + + External Lab: PTT (07/25/2014) + +-------+ + + + | Component | Value | Ref Range | Performed | Pathologist | | | | | At | Signature | + +-------+ + + + | PTT, | 28.5 | 22.9 - 41.3 | EXTERNAL | | | External | | | LAB | | + +-------+ + + + + + | Resulting Agency Comment | + + | [facility] | + + + +---------+ + + | Performing | Address | City/State/Zipcode | Phone Number | | Organization | | | | + +---------+ + + | EXTERNAL LAB | | | | + +---------+ + + External Lab: CKMB (07/25/2014) + + + + + + | Component | Value | Ref Range | Performed | Pathologist | | | | | At | Signature | + + + + + + | CKMB, | 1.68Comment: Mass | 0 - 4.94 | EXTERNAL | | | Total, | | | LAB | | | External | | | | | + + + + + + + + | Resulting Agency Comment | + + | [facility] | + + + +---------+ + + | Performing | Address | City/State/Zipcode | Phone Number | | Organization | | | | + +---------+ + + | EXTERNAL LAB | | | | + +---------+ + + External Lab: Ck, Total (07/25/2014) + +-------+ + + + | Component | Value | Ref Range | Performed | Pathologist | | | | | At | Signature | + +-------+ + + + | CK, Total, | 100 | 24 - 195 | EXTERNAL | | | External | | | LAB | | + +-------+ + + + + + | Resulting Agency Comment | + + | [facility] | + + + +---------+ + + | Performing | Address | City/State/Zipcode | Phone Number | | Organization | | | | + +---------+ + + | EXTERNAL LAB | | | | + +---------+ + + External Lab: Troponin T (07/25/2014) + +--------+ + + + | Component | Value | Ref Range | Performed | Pathologist | | | | | At | Signature | + +--------+ + + + | Troponin T, | <0.010 | 0.01 | EXTERNAL | | | External | | | LAB | | + +--------+ + + + + + | Resulting Agency Comment | + + | [facility] | + + + +---------+ + + | Performing | Address | City/State/Zipcode | Phone Number | | Organization | | | | + +---------+ + + | EXTERNAL LAB | | | | + +---------+ + + External Lab: Magnesium (07/25/2014) + +-------+ + + + | Component | Value | Ref Range | Performed | Pathologist | | | | | At | Signature | + +-------+ + + + | Magnesium, | 2.1 | 1.7 - 2.5 | EXTERNAL | | | External | | | LAB | | + +-------+ + + + + + | Resulting Agency Comment | + + | [facility] | + + + +---------+ + + | Performing | Address | City/State/Zipcode | Phone Number | | Organization | | | | + +---------+ + + | EXTERNAL LAB | | | | + +---------+ + + External Lab: CBC (07/25/2014) + +---------+ + + + | Component | Value | Ref Range | Performed | Pathologist | | | | | At | Signature | + +---------+ + + + | WBC, | 7.4 | 4.5 - 11 | EXTERNAL | | | External | | | LAB | | + +---------+ + + + | HGB, | 15.0 | 13.5 - 18 | EXTERNAL | | | External | | | LAB | | + +---------+ + + + | HCT, | 46.3 | 41 - 50 | EXTERNAL | | | External | | | LAB | | + +---------+ + + + | Neutrophils | 61.6 | 39 - 80 | EXTERNAL | | | %, | | | LAB | | | External | | | | | + +---------+ + + + | Lymphocytes | 33.2 | 24 - 44 | EXTERNAL | | | %, | | | LAB | | | External | | | | | + +---------+ + + + | Monocytes | 6.7 | 0 - 12 | EXTERNAL | | | %, External | | | LAB | | + +---------+ + + + | Eosinophils | 7.5 (A) | 0 - 6 | EXTERNAL | | | %, | | | LAB | | | External | | | | | + +---------+ + + + | RBC, | 4.72 | 4.3 - 5.7 | EXTERNAL | | | External | | | LAB | | + +---------+ + + + | MCV, | 98 | 81 - 99 | EXTERNAL | | | External | | | LAB | | + +---------+ + + + | RDW, | 12.1 | 10.5 - 15 | EXTERNAL | | | External | | | LAB | | + +---------+ + + + + + | Resulting Agency Comment | + + | [facility] | + + + +---------+ + + | Performing | Address | City/State/Zipcode | Phone Number | | Organization | | | | + +---------+ + + | EXTERNAL LAB | | | | + +---------+ + + External Lab: Nilsa NORIEGA (07/25/2014) + +-------+ + + + | Component | Value | Ref Range | Performed | Pathologist | | | | | At | Signature | + +-------+ + + + | INR, | 1.0 | | EXTERNAL | | | External | | | LAB | | + +-------+ + + + | PT, | 13.7 | | EXTERNAL | | | External | | | LAB | | + +-------+ + + + + + | Specimen | + + | Blood specimen | | (specimen) | + + + + | Resulting Agency Comment | + + | [facility] | + + + +---------+ + + | Performing | Address | City/State/Zipcode | Phone Number | | Organization | | | | + +---------+ + + | EXTERNAL LAB | | | | + +---------+ + + Ethanol (07/25/2014) + +---------+ + + + | Component | Value | Ref Range | Performed | Pathologist | | | | | At | Signature | + +---------+ + + + | ALCOHOL, | 221 (A) | 10 mg/dL | [facility] | | | SERUM/PLASM | | | [facility] | | | A | | | MEDICAL | | | | | | CENTER - | | | | | | LABORATORY | | + +---------+ + + + + + | Specimen | + + | Blood specimen | | (specimen) | + + + + + + + | Performing | Address | City/State/Zipcode | Phone Number | | Organization | | | | + + + + + | [facility] | [address] | [place], [place] | | | [facility] | | [id number] | | | - LABORATORY | | | | + + + + + External Lab: PAMELA (07/25/2014) + +-------+ + + + | Component | Value | Ref Range | Performed | Pathologist | | | | | At | Signature | + +-------+ + + + | BUN, | 10 | 6 - 23 | EXTERNAL | | | External | | | LAB | | + +-------+ + + + + + | Resulting Agency Comment | + + | [facility] | + + + +---------+ + + | Performing | Address | City/State/Zipcode | Phone Number | | Organization | | | | + +---------+ + + | EXTERNAL LAB | | | | + +---------+ + + External Lab: Glucose (07/25/2014) + +-------+ + + + | Component | Value | Ref Range | Performed | Pathologist | | | | | At | Signature | + +-------+ + + + | Glucose, | 94 | 70 - 100 | EXTERNAL | | | External | | | LAB | | + +-------+ + + + + + | Resulting Agency Comment | + + | [facility] | + + + +---------+ + + | Performing | Address | City/State/Zipcode | Phone Number | | Organization | | | | + +---------+ + + | EXTERNAL LAB | | | | + +---------+ + + External Lab: ALT (07/25/2014) + +-------+ + + + | Component | Value | Ref Range | Performed | Pathologist | | | | | At | Signature | + +-------+ + + + | ALT, | 16 | 7 - 52 | EXTERNAL | | | External | | | LAB | | + +-------+ + + + + + | Resulting Agency Comment | + + | [facility] | + + + +---------+ + + | Performing | Address | City/State/Zipcode | Phone Number | | Organization | | | | + +---------+ + + | EXTERNAL LAB | | | | + +---------+ + + External Lab: AST (07/25/2014) + +-------+ + + + | Component | Value | Ref Range | Performed | Pathologist | | | | | At | Signature | + +-------+ + + + | AST, | 20 | 13 - 39 | EXTERNAL | | | External | | | LAB | | + +-------+ + + + + + | Resulting Agency Comment | + + | [facility] | + + + +---------+ + + | Performing | Address | City/State/Zipcode | Phone Number | | Organization | | | | + +---------+ + + | EXTERNAL LAB | | | | + +---------+ + + External Lab: Alkaline Phosphatase (07/25/2014) + +-------+ + + + | Component | Value | Ref Range | Performed | Pathologist | | | | | At | Signature | + +-------+ + + + | ALP, | 89 | 30 - 129 | EXTERNAL | | | External | | | LAB | | + +-------+ + + + + + | Resulting Agency Comment | + + | [facility] | + + + +---------+ + + | Performing | Address | City/State/Zipcode | Phone Number | | Organization | | | | + +---------+ + + | EXTERNAL LAB | | | | + +---------+ + + External Lab: Bilirubin, Total (07/25/2014) + +-------+ + + + | Component | Value | Ref Range | Performed | Pathologist | | | | | At | Signature | + +-------+ + + + | Bilirubin, | 0.4 | 0 - 1.2 | EXTERNAL | | | Total, | | | LAB | | | External | | | | | + +-------+ + + + + + | Resulting Agency Comment | + + | [facility] | + + + +---------+ + + | Performing | Address | City/State/Zipcode | Phone Number | | Organization | | | | + +---------+ + + | EXTERNAL LAB | | | | + +---------+ + + External Lab: Albumin (07/25/2014) + +-------+ + + + | Component | Value | Ref Range | Performed | Pathologist | | | | | At | Signature | + +-------+ + + + | Albumin, | 4.5 | 3.5 - 5 | EXTERNAL | | | External | | | LAB | | + +-------+ + + + + + | Resulting Agency Comment | + + | [facility] | + + + +---------+ + + | Performing | Address | City/State/Zipcode | Phone Number | | Organization | | | | + +---------+ + + | EXTERNAL LAB | | | | + +---------+ + + External Lab: Protein, Total (07/25/2014) + +-------+ + + + | Component | Value | Ref Range | Performed | Pathologist | | | | | At | Signature | + +-------+ + + + | Protein, | 7.0 | 6 - 8 | EXTERNAL | | | Total, | | | LAB | | | External | | | | | + +-------+ + + + + + | Resulting Agency Comment | + + | [facility] | + + + +---------+ + + | Performing | Address | City/State/Zipcode | Phone Number | | Organization | | | | + +---------+ + + | EXTERNAL LAB | | | | + +---------+ + + External Lab: Calcium (07/25/2014) + +-------+ + + + | Component | Value | Ref Range | Performed | Pathologist | | | | | At | Signature | + +-------+ + + + | Calcium, | 9.2 | 8.4 - 10.2 | EXTERNAL | | | External | | | LAB | | + +-------+ + + + + + | Resulting Agency Comment | + + | [facility] | + + + +---------+ + + | Performing | Address | City/State/Zipcode | Phone Number | | Organization | | | | + +---------+ + + | EXTERNAL LAB | | | | + +---------+ + + External Lab: Carbon Dioxide (07/25/2014) + +-------+ + + + | Component | Value | Ref Range | Performed | Pathologist | | | | | At | Signature | + +-------+ + + + | Carbon | 23 | 19 - 31 | EXTERNAL | | | Dioxide, | | | LAB | | | External | | | | | + +-------+ + + + + + | Resulting Agency Comment | + + | [facility] | + + + +---------+ + + | Performing | Address | City/State/Zipcode | Phone Number | | Organization | | | | + +---------+ + + | EXTERNAL LAB | | | | + +---------+ + + External Lab: Chloride (07/25/2014) + +-------+ + + + | Component | Value | Ref Range | Performed | Pathologist | | | | | At | Signature | + +-------+ + + + | Chloride, | 105 | 95 - 112 | EXTERNAL | | | External | | | LAB | | + +-------+ + + + + + | Resulting Agency Comment | + + | [facility] | + + + +---------+ + + | Performing | Address | City/State/Zipcode | Phone Number | | Organization | | | | + +---------+ + + | EXTERNAL LAB | | | | + +---------+ + + External Lab: Potassium (07/25/2014) + +-------+ + + + | Component | Value | Ref Range | Performed | Pathologist | | | | | At | Signature | + +-------+ + + + | Potassium, | 3.8 | 3.6 - 5.1 | EXTERNAL | | | External | | | LAB | | + +-------+ + + + + + | Resulting Agency Comment | + + | [facility] | + + + +---------+ + + | Performing | Address | City/State/Zipcode | Phone Number | | Organization | | | | + +---------+ + + | EXTERNAL LAB | | | | + +---------+ + + External Lab: Sodium (07/25/2014) + +-------+ + + + | Component | Value | Ref Range | Performed | Pathologist | | | | | At | Signature | + +-------+ + + + | Sodium, | 140 | 132 - 143 | EXTERNAL | | | External | | | LAB | | + +-------+ + + + + + | Resulting Agency Comment | + + | [facility] | + + + +---------+ + + | Performing | Address | City/State/Zipcode | Phone Number | | Organization | | | | + +---------+ + + | EXTERNAL LAB | | | | + +---------+ + + External Lab: eGFR (07/25/2014) + +-------+ + + + | Component | Value | Ref Range | Performed | Pathologist | | | | | At | Signature | + +-------+ + + + | eGFR, | >60 | 60 - 999,999 | EXTERNAL | | | External | | | LAB | | + +-------+ + + + + + | Specimen | + + | Blood specimen | | (specimen) | + + + + | Resulting Agency Comment | + + | [facility] | + + + +---------+ + + | Performing | Address | City/State/Zipcode | Phone Number | | Organization | | | | + +---------+ + + | EXTERNAL LAB | | | | + +---------+ + + External Lab: Creatinine (07/25/2014) + +-------+ + + + | Component | Value | Ref Range | Performed | Pathologist | | | | | At | Signature | + +-------+ + + + | Creatinine, | 0.75 | 0.7 - 1.33 | EXTERNAL | | | External | | | LAB | | + +-------+ + + + + + | Specimen | + + | Blood specimen | | (specimen) | + + + + | Resulting Agency Comment | + + | [facility] | + + + +---------+ + + | Performing | Address | City/State/Zipcode | Phone Number | | Organization | | | | + +---------+ + + | EXTERNAL LAB | | | | + +---------+ + + CBC with Differential (07/25/2014) + +-------+ + + + | Component | Value | Ref Range | Performed | Pathologist | | | | | At | Signature | + +-------+ + + + | MCH | 32.0 | pg | | | + +-------+ + + + | MCHC | 32.0 | % | | | + +-------+ + + + | % Basophils | 1.0 | % | | | + +-------+ + + + + + | Specimen | + + | Blood specimen | | (specimen) | + + Rule Out Myocardial (07/25/2014) + + + + + + | Component | Value | Ref Range | Performed | Pathologist | | | | | At | Signature | + + + + + + | MYOGLOBIN | 21 (A) | 28 - 72 ng/mL | [facility] | [facility] | | | | | [facility] | | | | | [facility] - | | | | | | LABORATORY | | + + + + + + | CK Index | 1.9 | | [facility] | | [facility] | | | | | | [facility] | | | | | | [facility] - | | | | | | LABORATORY | | + + + + + + | CKMB, | Negative | | [facility] | | | Total, | | | [facility] | | | External | | | MEDICAL | | | | | | CENTER - | | | | | | LABORATORY | | + + + + + + + + | Specimen | + + | | + + + + + + + | Performing | Address | City/State/Zipcode | Phone Number | | Organization | | | | + + + + + | [facility] | [address] | [place] | | | [facility] | | [address], [facility] | | | - LABORATORY | | | | + + + + + Comprehensive Metabolic Panel (07/25/2014) + +-------+ + + + | Component | Value | Ref Range | Performed | Pathologist | | | | | At | Signature | + +-------+ + + + | Anion Gap | 17 | mmol/L | [facility] | | | | | | [facility] | | | | | | [facility] - | | | | | | LABORATORY | | + +-------+ + + + | BUN/Creatin | 13.3 | | [facility] | | | ine Ratio | | | [facility] | | | | | | [facility] | | | | | | CENTER - | | | | | | LABORATORY | | + +-------+ + + + | Globulin | 2.5 | | [facility] | | | | [facility] | | | | | [facility] | | | | | | C[facility] - | | | | | | LABORATORY | | + +-------+ + + + | Albumin/Zahira | 1.8 | | [facility] | | | bulin Ratio | | | [facility] | | | [facility] | | [facility] | | | | | | C[facility] - | | | | | | LABORATORY | | + +-------+ + + + + + | Specimen | + + | Blood specimen | | (specimen) | + + + + + + + | Performing | Address | City/State/Zipcode | Phone Number | | Organization | | | | + + + + + | [facility] | [address] | [place] | | | [facility] | | [address], [facility] | | | - LABORATORY | | | | + + + + + documented in this encounter Visit Diagnoses + + | Diagnosis | + + | COPD (chronic obstructive pulmonary disease) (HCC) - Primary Chronic airway | | obstruction, not elsewhere classified | + + | S/P partial lobectomy of lung Other postprocedural status | + + | Tobacco abuse Tobacco use disorder | + + documented in this encounter"
--- OUTSIDE RECORDS SUMMARY | ~2019-11-15 | XMS | Encounter Summary ---
Demographics + + + | Address | [address] | | | [place] [address] | + + + | Home Phone | | + + + | Preferred Language | Unknown | + + + | Marital Status | Unknown | + + + | Congregation Affiliation | 1013 | + + + | Race | Unknown | + + + | Ethnic Group | Unknown | + + + Author + + + | Author | [facility] | | | and [place] | + + + | Organization | [facility] | | | and [place] [...] Team Providers + +------+ + | Care Steam Hoist Operator Name | Role | Phone | + +------+ + | Panda Ma NP | PCP | | + +------+ + Reason for Visit Diagnostic/Screening (Routine) +--------+--------+ + + + + | Status | Reason | Specialty | Diagnoses / | Referred By | Referred To | | | | | Procedures | Contact | Contact | +--------+--------+ + + + + | Closed | | Radiology | Procedures | Provider, | | | | | | CT | Historical, | | | | | | Cervical | [address] | | | | | | Spine wo | [address] | | | | | | Contrast | [place] | | | | | | | [address] | | +--------+--------+ + + + + Encounter Details +--------+ + + + + | Date | Type | Department | Care Team | Description | +--------+ + + + + | 11/24/ | Imaging | [facility] | Provider, | | | 2017 | Exam | [facility] | Historical, [address] | | | | | IM[address] | [address] [place] | | | | | [address] [place] | [place] [address] | | | | | [place] [address] | | | | | | [phone] | | | +--------+ + + + [...] + +--------+ + + + | CT CERVICAL SPINE WO | Routin | 04/28/2016 | | Results for this | | CONTRAST | e | 2:35 PM | | procedure are in the | | | | PST | | results section. | + +--------+ + + + documented in this encounter Results CT Cervical Spine wo Contrast (04/28/2016 2:35 PM PST) + + | Specimen | + + | | + + + + + | Narrative | Performed At | + + + | External films for comparison only - no result from [facility]. | [facility] | + + + + +---------+ + + | Performing | Address | City/State/Zipcode | Phone Number | | Organization | | | | + +---------+ + + | [facility] | | | | + +---------+ + + documented in this encounter Visit Diagnoses Not on filedocumented in this encounter"
--- OUTSIDE RECORDS SUMMARY | ~2019-11-15 | XMS | Encounter Summary ---
Demographics + + + | Address | [address] | | | [place] [address] | + + + | Home Phone | | + + + | Preferred Language | Unknown | + + + | Marital Status | Unknown | + + + | Sabianist Affiliation | 1013 | + + + | Race | Unknown | + + + | Ethnic Group | Unknown | + + + Author + + + | Author | [facility] | | | and [place] | + + + | Organization | [facility] | | | and [...] Team Providers + +------+ + | Care Ab Initio Etl Developer Name | Role | Phone | + [...] | | | | [address] | [place] [address] | | | | | [place] [address] | | | | | | [phone] | | | +--------+ + + + [...] XR CHEST 1 VIEW | Routin | 04/28/2016 | | Results for this | | | e | 12:00 AM | | procedure are in the | | | | PST | | results section. | + +--------+ + + + documented in this encounter Results XR Chest 1 Vw (04/28/2016 12:00 AM PST) + + | Specimen [...]
--- OUTSIDE RECORDS SUMMARY | ~2019-11-15 | XMS | Encounter Summary ---
Demographics + + + | Address | [address] | | | [place] [address] | + + + | Home Phone | | + + + | Preferred Language | Unknown | + + + | Marital Status | Unknown | + + + | Yazidism Affiliation | 1013 | + + + | Race | Unknown | + + + | Ethnic Group | Unknown | + + + Author + + + | Author | [facility] | | | and [place] | + + + | Organization | [facility] | | | and [...] Team Providers + +------+ + | Care Egg Grader Name | Role | Phone | + +------+ + | Isai Feng | PCP | | + +------+ + Reason for Visit +--------+ + | Reason | Comments | +--------+ + | Other | 4 week monitor | +--------+ + Evaluate & Treat (Routine) +--------+--------+ + + + + | Status | Reason | Specialty | Diagnoses / | Referred By | Referred To | | | | | Procedures | Contact | Contact | +--------+--------+ + + + + | Closed | | Cardiology | Diagnoses | Mishra, | Vic | | | | | Syncope and | DO Cally | Cardiology | | | | | collapse 4 | [address] | [place] | | | | | week | [address] | [address] | | | | | Procedures | [place] | [address] | | | | | UT XTRNL PT | [place] | [address] | | | | | ACTIVTD ECG | [address] | [place] | | | | | DWNLD W/R&I | Phone: | [address] | | | | | </30 DAYS | [phone] | Phone: | | | | | UT EXT | Fax: | [phone] | | | | | ECG,PT | [phone] | Fax: | | | | | DEMAND | | [phone] | | | | | EVENT, SYMPT | | | | | | | MEMORY | | | | | | | LOOP, RECORD | | | | | | | UT XTRNL | | | | | | | MOBILE CV | | | | | | | TELEMETRY | | | | | | | W/I&REPORT | | | | | | | 30 DAYS CR | | | | | | | EVENT | | | | | | | MONITOR | | | +--------+--------+ + + + + Encounter Details +--------+ + + + + | Date | Type | Department | Care Team | Description | +--------+ + + + + | 07/10/ | Procedure | [facility] | Cally Mishra DO | Syncope, unspecified | | 2020 | visit | [facility]IOLOGY [place] | [address] | syncope type | | | | [address] | [place], [place] | | | | | [place] [address] | [address] | | | | | [place], [place] | | | | | | [address] | | | | | | [phone] | | | +--------+ + + + [...] documented as of this encounter Progress Notes Beatrice Cortes CMA - 07/10/2019 3:00 PM PST4 week cardiac event monitor placed on patie nt. EOB/Billing information discussed. Instructions given and understood.Electronically sign ed by Beatrice Cortes CMA at 07/10/2019 10:48 AM PSTdocumented in this encounter Plan of Treatment Not on filedocumented as of this encounter Visit Diagnoses + + | Diagnosis | + + | Syncope, unspecified syncope type | + + documented in this encounter"
--- OUTSIDE RECORDS SUMMARY | ~2019-11-15 | XMS | Encounter Summary ---
Demographics + + + | Address | [address] | | | [place] [address] | + + + | Home Phone | | + + + | Preferred Language | Unknown | + + + | Marital Status | Unknown | + + + | Shinto Affiliation | 1013 | + + + | Race | Unknown | + + + | Ethnic Group | Unknown | + + + Author + + + | Author | [facility] | | | and [place] | + + + | Organization | [facility] | | | and [...] Team Providers + +------+ + | Care Director General Name | Role | Phone | + +------+ + | Isai Feng PCP | | + +------+ + Reason for Visit +--------+--------+ + | Reason | Onset | Comments | | | Date | | +--------+--------+ + | Other | 05/13/ | | | | 2019 | | +--------+--------+ + Encounter Details +--------+ + + + + | Date | Type | Department | Care Team | Description | +--------+ + + + + | 05/13/ | Telephone | [facility] | Leora Bhagat | Other | | 2019 | | PULMONARY [address] | [address] | | | | | [place], | [address] [place] | | | | | [place] [address] | [place] [address] | | | | | [phone] | [phone] | | | | | | | [...] Telephone Encounter - Conchita Christianson RN - 05/13/2019 3:46 PM PSTCalled Isai to ask i f he was planning to return for follow up with Dr Bhagat as he cancelled his chest CT and is not having a sleep study although he did see Dr Blanchard. He did not answer his phone so left a message asking him to return the call. Electronically signed by Conchita Christianson RN at 3:48 PM PSTdocumented in this encounter Plan of Treatment Not on filedocumented as of this encounter Visit Diagnoses Not on filedocumented in this encounter"
--- OUTSIDE RECORDS SUMMARY | ~2019-11-15 | XMS | Encounter Summary ---
Demographics + + + | Address | [address] | | | [place] [address] | + + + | Home Phone | | + + + | Preferred Language | Unknown | + + + | Marital Status | Unknown | + + + | Rastafari Affiliation | 1013 | + + + | Race | Unknown | + + + | Ethnic Group | Unknown | + + + Author + + + | Author | [facility] | | | and [place] | + + + | Organization | [facility] | | | and [place] | [...] Team Providers + +------+ + | Care Java Development Team Lead Name | Role | Phone | + [...] | | | | | | CT Head wo | Historical, | | | | | | Emile | [address] | | | | | | | [address] | | | | | | | [place] | | | | | | | [address] | | +--------+--------+ + + + + Encounter Details +--------+ + + + + | Date | Type | Department | Care Team | Description | +--------+ + + + + | 11/24/ | Imaging | [facility] | Provider, | | | 2017 | Exam | [facility] | MD Vasiliy Lynn | | | | | IMAGING [address] | [address] [place] | | | | | [address] [place] | [place] [address] | | | | | [place] [address] | | | | | | [phone] | | | +--------+ + + + [...] + +--------+ + + + | CT HEAD WO CONTRAST | Routin | 04/28/2016 | | Results for this | | | e | 2:50 PM | | procedure are in the | | | | PST | | results section. | + +--------+ + + + documented in this encounter Results CT Head wo Contrast (04/28/2016 2:50 PM PST) + + | Specimen | [...]
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
--- OUTSIDE RECORDS SUMMARY | ~2019-11-15 | XMS | Clinical Summary ---
Demographics + + + | Address | [address] | | | [place] [address] | + + + | Home Phone | | + + + | Preferred Language | Unknown | + + + | Marital Status | Unknown | + + + | Muslim Affiliation | 1013 | + + + | Race | Unknown | + + + | Ethnic Group | Unknown | + + + Author + + + | Author | [facility] | | | and [place] | + + + | Organization | [facility] | | | and [...] Team Providers + +------+ + | Care Laundry Manager Name | Role | Phone | + +------+ + | Isai Feng | PCP | | + +------+ + Allergies No Known Allergies Medications + + + +---------+------+------+-------+ | Medication | Sig | Dispensed | Refills | Star | End | Statu | | | | | | t | Date | s | | | | | | Date | | | + + + +---------+------+------+-------+ | albuterol 90 | Inhale 2 puffs into | | 0 | | | Activ | | mcg/puff inhaler | the lungs 4 times | | | | | e | | | daily. | | | | | | + + + +---------+------+------+-------+ | tiotropium | Inhale 18 mcg into | | 0 | | | Activ | | (SPIRIVA HANDIHALER) | the lungs Daily. | | | | | e | | 18 mcg inhalation | | | | | | | | capsule | | | | | | | + + + +---------+------+------+-------+ | aspirin 325 mg | Take 325 mg by mouth | | 0 | | | Activ | | tablet | Daily. | | | | | e | + + + +---------+------+------+-------+ | atorvaSTATin | Take 20 mg by mouth | | 0 | 10/1 | | Activ | | (LIPITOR) 20 mg | Daily. | | | 0/20 | | e | | tablet | | | | 19 | | | + + + +---------+------+------+-------+ | CHANTIX STARTING | | | 0 | 09/1 | | Activ | | MONTH KINJAL 0.5 MG X | | | | 7/20 | | e | | 11 & 1 MG X 42 | | | | 19 | | | | tablet | | | | | | | + + + +---------+------+------+-------+ | COMBIVENT RESPIMAT | Inhale 1 puff into | | 0 | 09/1 | | Activ | | 20-100 MCG/ACT | the lungs 2 times | | | 20 | | e | | inhaler | daily. | | | 19 | | | + + + +---------+------+------+-------+ | Spacer/Aero-Hold | Use with MDI inhaler | 1 each | 4 | 10/2 | | Activ | | Chamber Bags | as needed. | | | 8/20 | | e | | MISCIndications: | | | | 19 | | | | Chronic obstructive | | | | | | | | pulmonary disease, | | | | | | | | unspecified COPD | | | | | | | | type (HCC) | | | | | | | + + + +---------+------+------+-------+ | | Inhale 1 puff into | 1 each | 11 | 11/0 | | Activ | | fluticasone-salmeter | the lungs 2 times | | | 1/20 | | e | | ol (ADVAIR, WIXELA | daily. | | | 19 | | | | INHUB) 250-50 | | | | | | | | mcg/puff diskus | | | | | | | | inhaler | | | | | | | + + + +---------+------+------+-------+ | | | | 0 | 12/0 | | Activ | | HYDROcodone-acetamin | | | | 2/20 | | e | | ophen (NORCO) 5-325 | | | | 19 | | | | mg per tablet | | | | | | | + + + +---------+------+------+-------+ Active Problems + + + | Problem | Noted Date | + + + | Tobacco abuse | 12/15/2014 | + + + | COPD (chronic obstructive pulmonary disease) | 12/15/2014 | + + + | S/P partial lobectomy of lung | 12/15/2014 | + + + | DDD (degenerative disc disease), lumbar | | + + + | Cervical disc disease | | + + + | Tendinitis of right shoulder | | + + + Immunizations + + + + | Name | Administration Dates | Next Due | + + + + | INFLUENZA PF | 03/10/2019, 05/01/2016 | | | QUAD(PED/ADOL/ADULT) | | | | ,PSKT or VIAL | | | + + + + Family History + + +------+ + | Medical History | Relation | Name | Comments | + + +------+ + | Cancer | Father | | stomach | + + +------+ + | Emphysema | Father | | | + + +------+ + | Heart disease | Father | | | + + +------+ + | Hypertension | Father | | | + + +------+ + | No known problems | Maternal | | | | | Grandfath | | | | | er | | | + + +------+ + | No known problems | Maternal | | | | | Grandmoth | | | | | er | | | + + +------+ + | Breast cancer | Mother | | | + + +------+ + | Emphysema | Mother | | | + + +------+ + | Heart disease | Mother | | | + + +------+ + | Stroke | Mother | | | + + +------+ + | Cancer | Paternal | | | | | Grandfath | | | | | er | | | + + +------+ + | Cancer | Paternal | | | | | Grandmoth | | | | | er | | | + + +------+ + | Cancer | Sister | | neuroblastoma | + + +------+ + | Lung cancer | Sister | | | + + +------+ + | Stroke | Sister | | | + + +------+ + | No known problems | Son | | | + + +------+ + | No known problems | Son | | | + + +------+ + + +------+ + + | Relation | Name | Status | Comments | + +------+ + + | Father | | | stomach cancer | | | | (Age | | | | | 77) | | + +------+ + + | Maternal Grandfather | | | | + +------+ + + | Maternal Grandmother | | | | + +------+ + + | Mother | | | breast cancer | | | | (Age | | | | | 58) | | + +------+ + + | Paternal Grandfather | | | | + +------+ + + | Paternal Grandmother | | | | + +------+ + + | Sister | | | | + +------+ + + | Sister | | | lung cancer | | | | (Age | | | | | 56) | | + +------+ + + | Son | | Alive | | + +------+ + + | Son | | Alive | | + +------+ + + Social History + + + [...] on file | | + + + Last Filed Vital Signs + + + [...] + + + + | Temperature | 36.7 C (98 F) | 03/10/2019 9:42 AM | | | | | PDT | [...] | | + + + + + Plan of Treatment + + + + + | Health Maintenance | Due Date | Last | Comments | | | | Done | | + + + + + | Hepatitis C | | | | | Screening | 2 | | | + + + + + | Vaccine: | | | | | Pneumococcal 19-64 | 8 | | | | (1 of 1 - PPSV23) | | | | + + + + + | Vaccine: | | | | | Dtap/Tdap/Td (1 - | 1 | | | | Tdap) | | | | + + + + + | Colorectal Cancer | | | | | Screening | 2 | | | | (Colonoscopy) | | | | + + + + + | Vaccine: Zoster (1 | | | | | of 2) | 2 | | | + + + + + | Lung Cancer | | 04/30/20 | | | Screening | 7 | 16 | | + + + + + | Statin Therapy | | | | | (optimal intensity) | 9 | | | + + + + + | Vaccine: Influenza | Completed | 03/10/20 | | | | | 19, | | | | | 05/01/20 | | | | | 16 | | + + + + + Results Not on filefrom Last 3 Months Insurance + +--------+ +--------+ +---------+--------+ | Payer | Benefi | Subscriber | Effect | Phone | Address | Type | | | t Plan | ID | patrick | | | | | | / | | Dates | | | | | | Group | | | | | | + +--------+ +--------+ +---------+--------+ | [employer] | [employer] | [id number] | 04/28/ | [phone] | | Indemn | | | WC | | 2016-P | 8 | | ity | | | | | resent | | | | + +--------+ +--------+ +---------+--------+ | [employer] | [employer] | [id number] | | [phone] | | Medica | | MEDICAID HMO | HEALTH | | 019-Pr | 1 | | id | | | MDCD | | esent | | | | | | [place] | | | | | | + +--------+ +--------+ +---------+--------+ | [employer] | [employer] | [id number] | 03/10/ | [phone] | | Medica | | MEDICAID HMO | HEALTH | | 2019-P | 1 | | id | | | MDCD | | resent | | | | | | [place] | | | | | | + +--------+ +--------+ +---------+--------+ + +--------+ +--------+ + + | Guarantor Name | Accoun | Relation to | Date | Phone | Billing Address | | | t Type | Patient | of | | | | | | | | | | + +--------+ +--------+ + + | Isai Dolan | Person | Self [birth year] | [address] | | | al/Fam | | 1961 | [phone] | | | [place] | | | [address] (Home) | [place], [place] | | | | | | | [address] | + +--------+ +--------+ + + | Isai Dolan | Person | Self | [birth year] | | [address] | | | al/Fam | | 1961 | [phone] | | | [place] | | | [address] (Home) | [place], [place] | | | | | | | [address] | + +--------+ +--------+ + + | Isai Dolan | Worker | Self [birth year] | [address] | | | s Comp | | 1961 | [phone] | | | | | | [address] (Home) | [place] [address] | + +--------+ +--------+ + + Advance Directives + + + + + | Type | Date Recorded | Patient | Explanation | | | | Third Miller | | + + + + + | Power of | | | | | Senior Operations Analyst | | | | + + + + + | Advance | 12/15/2014 11:09 | | | | Directive | AM | | | + + + + +
--- OUTSIDE RECORDS SUMMARY | ~2019-11-15 | XMS | Encounter Summary ---
Demographics + + + | Address | [address] | | | [place] [address] | + + + | Home Phone | | + + + | Preferred Language | Unknown | + + + | Marital Status | Unknown | + + + | Hinduism Affiliation | 1013 | + + + | Race | Unknown | + + + | Ethnic Group | Unknown | + + + Author + + + | Author | [facility] | | | and [place] | + + + | Organization | [facility] | | | and [...] Team Providers + +------+ + | Care Waste Water Plant Operator Name | Role | Phone | [...] | | | | [address] | [place] [address] | | | | | [place] [address] | | | | | | [phone] | | | +--------+ + + + [...] +--------+ + + + | XR CHEST 2 VIEWS | Routin | 04/29/2016 | | Results for this | | | e | 12:00 AM | | procedure are in the | | | | PST | | results section. | + +--------+ + + + documented in this encounter Results XR Chest 2 Vws (04/29/2016 12:00 AM PST) + + | Specimen [...]
--- OUTSIDE RECORDS SUMMARY | ~2019-11-15 | XMS | Encounter Summary ---
Demographics + + + | Address | [address] | | | [place] [address] | + + + | Home Phone | | + + + | Preferred Language | Unknown | + + + | Marital Status | Unknown | + + + | Voodoo Affiliation | 1013 | + + + | Race | Unknown | + + + | Ethnic Group | Unknown | + + + Author + + + | Author | [facility] | | | and [place] | + + + | Organization | [facility] | | | and [place] [...] Team Providers + +------+ + | Care Craft Superintendent Name | Role | Phone | + +------+ + | Isai Feng | PCP | | + +------+ + Encounter Details +--------+ + + + + | Date | Type | Department | Care Team | Description | +--------+ + + + + | 08/04/ | Imaging | [facility] | Provider, | | | 2019 | Exam | [facility] | Historical, MD [address] | | | | | IMAGING [address] | [address] | | | | | [address] | [place] [address] | | | | | [place] [address] | | | | | | [phone] | | | +--------+ + + + [...]
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
[~2019-11-15 14:18] MED LIST changes: +LIPITOR20 MG PO; +PROMETHAZINE HC25 M1 PO; +SPIRIVA18 MCG INH
[2019-11-15] MEDS ORDERED: NORCO 5-325 TA1 EACH PO ×2 (15:23→15:24)
[2019-11-15] MEDS ORDERED: CLEOCIN HCL300 MG PO (15:24)
== END 2019-11-15 15:38 | disposition home or self-care (01) ==
LOC: ED 14:18
DX: L03.115 Cellulitis of right lower limb (principal); I25.2 Old myocardial infarction; F17.200 Nicotine dependence, unspecified, uncomplicated; Z79.899 Other long term (current) drug therapy
CPT/HCPCS: 73560; 99283-25

== ENCOUNTER 2021-04-18 06:02 | Inpatient (IN) | payer OTHER ==
[~2021-04-18] VITALS: Ht 182.9 cm; Wt 64.5 kg
[~2021-04-18 06:02] MED LIST changes: +CLEOCIN HCL300 MG PO
--- OUTSIDE RECORDS SUMMARY | 2021-04-18 06:04 | XMS ---
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 Darrell has no Care Guidelines for this patient. Brittany VISIT COUNT (12 MO.) [address] [facility] TOTAL 2 NOTE: Visits indicate total known visits. ED/[facility] VISIT TRACKING (12 MO.) 04/18/2021 06:[address] [facility] [place] TYPE: Emergency COMPLAINT: - DIFFICULTY BREATHING 04/17/2021 16:07 [facility] TYPE: Emergency DIAGNOSES: 11552. SOB 85919. Elevated white blood cell count, unspecified 98204. Hypoxemia 04215. Hyperglycemia, unspecified 21519. Hypo-osmolality and hyponatremia INPATIENT VISIT TRACKING (12 MO.) 04/12/2021 05:25 [facility] TYPE: Thoracic Surgery DIAGNOSES: 54684. Left Upper Lobe Lung Mass 52123. Solitary pulmonary nodule [email or web address]
[2021-04-18] MEDS ORDERED: TRELEGY ELLIPT1 EACH INH (06:18)
[2021-04-18] MEDS ORDERED: ROSUVASTATIN CA40 MG PO (06:18)
[2021-04-18] MEDS ORDERED: METFORMIN HCL500 M1 PO (06:18)
--- NOTE | 2021-04-18 20:30 | NUR ---
PATIENT REPORT RECIEVED FROM KATHRIN ROMERO. PATIENT IS BEING TRANSPORTED TO UNIT.
--- NOTE | 2021-04-18 21:33 | NUR ---
PATIENT ADMISSION COMPLETE. MEDICATIONS GIVEN ORDERED. PATIENT IS ALERT AND ORIENTED X4. PATIENT HAD RECENTLY BEEN DISCHARGED ON 04/17 FROM [facility] HAVING A PNEUMONECTOMY. LUNG SOUNDS ARE DIMINISHED THROUGHOUT. PATIENT HAS AN ABD BANDAGE COVERING SURGICAL SITE. DRY AND INTACT. RR IS 15-22. PATIENT IS ON 5 LITERS OXY MASK. OXYGEN SATURATIONS ARE WNL. HEART RATE IS 90-100 BPM. SINUS RYTHM HEART SOUNDS ARE WNL. AFEBRILE. PATIENT HAS NOT HAD ANY URINE OUTPUT OR BM. BOWEL TONES ARE ACTIVE. CMST INTACT. PATIENT IS COOL TO TOUCH. PATIENT IS UPDATED ON PLAN OF CARE. CALL LIGHT WITHIN REACH NO QUESTIONS. NO FUTHER NEEDS.
--- NOTE | 2021-04-18 23:11 | NUR ---
BOLUS COMPLETED, CONTINUOUS IVF STARTED. URINAL EMPTIED OF 300ML ANTOLIN URINE. OXYGEN AT 5L OXYMASK.
--- NOTE | 2021-04-19 00:10 | NUR ---
PATIENT ASSESSMENT COMPLETE. PATIENT IS ALERT AND ORIENTED X4. LUNG SOUNDS ARE DIMINISHED THROUGHOUT. RR IS 15-20. PATIENT IS ON 5 LITERS OXYMASK. OXYGEN SATURATIONS WNL. HEART RATE IS 80-90 BPM. PATIENT IS IN SINUS RHYTHM. URINE OUTPUT IS ANTOLIN AND CONCENTRATED. NO BM BOWEL TONES ACTIVE. PATIENT DENIES SHORTNESS OF BREATH OR PAIN. PLAN OF CARE UPDATED CALL LIGHT WITHIN REACH NO FUTHER NEEDS.
--- NOTE | 2021-04-19 00:10 | NUR ---
PATIENT ASSEMENT COMPLETE. PATIENT IS ALERT AND ORIENTED X4. LUNG SOUNDS ARE DIMINISHED THROUGHOUT. PATIENT IS ON 5 LITERS OXY MASK. OXYGEN AND RR IS WNL. PATIENT DENIES PAIN AND SHORTNESS OF BREATH AT THIS TIME. URINE IS ANTOLIN AND CONCENTRATED. NO BM BUT BOWEL TONES WERE ACTIVE. PLAN OF CARE UPDATED. NO QUESTIONS AT THIS TIME CALL LIGHT WITHIN REACH NO FUTHER NEEDS.
--- NOTE | 2021-04-19 02:25 | NUR ---
HEARD PT STIRRING, IN TO CHECK ON HIM. 450ML ANTOLIN URINE EMPTIED FROM URINAL. 5L OXYMASK REMAIN IN PLACE. PT DENIES NEEDS.
--- NOTE | 2021-04-19 05:55 | NUR ---
MEDICATIONS GIVEN ORDERED. PATIENT DENIES PAIN AT THIS TIME. CALL LIGHT WITHIN REACH NO FUTHER NEEDS.
--- NOTE | 2021-04-19 07:30 | NUR ---
REPORT RECIEVED. PATIENT IS RESTING WITH HOB ELEVATED. NO DISTRESS NOTED.
--- NOTE | 2021-04-19 08:00 | NUR ---
ASSESSMENT DONE, PATIENT WIT FLAT AFFECT. NO RESP DISTRESS NOTED AT THIS TIME. DENIES PAIN OR NAUSEA. VOIDING TO URINAL. OXYMASK AT 5 LITERS ON.
--- NOTE | 2021-04-19 08:48 | NUR ---
PATIENT RESTING IN BED WITH EYES CLOSED, WOKE WHEN NAME WAS CALLED. BREAKFAST PROVIDED, PATIENT SITTING UP IN BED WITH 5L NC IN PLACE. CALL LIGHT IN EASY REACH
[2021-04-19] MEDS ORDERED: OXYCODONE HCL5 MG PO (09:03)
--- NOTE | 2021-04-19 09:16 | NUR ---
MED REC COMPLETED BY PHARMACY. HAS SUSPICION THAT PATIENT HAS NOT BEEN TAKING ANY MEDICATIONS DUE TO THE LONG WAIT TIMES AT PHARMACIES GIVEN [facility] RECENT CLOSURE. DISCUSSED A SHORTER WAIT TIME WITH RALPH, AND HE AGREED TO HAVE NEW PRESCRIPTIONS SENT TO [place].
--- NOTE | 2021-04-19 09:35 | NUR ---
TOOK BREAKFAST POOR. O2 VIS NC AT 5 L DECREASED TO 3 LITERS O2 SAT 100. NO RESP DISTRESS NOTED . PATIENT IS SITTING WITH HOB ELEVATED, NAPPING AT THIS TIME.
--- NOTE | 2021-04-19 10:20 | NUR ---
SPUTUM SENT TO LAB. PATIENT SITTING AT BEDSIDE, PHYS THERAPY HERE TO WORK WITH PATIENT.
--- NOTE | 2021-04-19 10:30 | NUR ---
PATIENT AMBULATED IN HALLWAY WITH PHYS THERAPY AND RN, O2 AT 3-4 LITERS NC. WITH EXERTION, O2 SAT TO 84 THAT IS WHEN O2 WAS INCREASED TO 4 L NC. PATIENT THEN TO CHAIR. MODIFIED SPONGE BATH GIVEN, SHAVED. PATIENT MORE TALKATIVE AT THIS TIME.
--- NOTE | 2021-04-19 11:20 | NUR ---
REMAINS IN CHAIR. ACCUCHECK 200, 2UNITS HUMALOG INSULIN GIVEN. PATIENT WANTS TO HAVE ENSURE FOR LUNCH. DIETIAN HERE TO TALK WITH PATIENT.
--- NOTE | 2021-04-19 12:00 | NUR ---
BACK TO BED WITH ASSIST. TRANSFER WELL, USING WALKER. ASSESSMENT UNCHANGED.
--- NOTE | 2021-04-19 15:01 | NUR ---
AWAKE AND WATCHING TV, S.O. AT BEDSIDE. PATIENT IS CURRENTLY ON 5 L NC WITH SATS 99. WILL TITRATE O2.
--- NOTE | 2021-04-19 17:22 | NUR ---
Spoke with pt and his Perla. Pt rests quietly during conversation. states they do not want pt to return to [facility]. She is aware they provide a high level of care than can be provided in [place]. would like pt to discharge to a SNF for care. states she works and pt is unable to care for self at home. Will update Dr. Carrero in the am. Discussed with , pt may need to return to [facility] as this is where his Dr.s are which performed his surgery.
--- NOTE | 2021-04-19 17:30 | NUR ---
TOOK DINNER POOR. DENIES NEED FOR PAIN MEDICATION. RESTFUL.
--- NOTE | 2021-04-19 19:12 | NUR ---
report to med-surg. PATIENT AMBULATED TO BR, PASSED FLATUS. THEN TO CHAIR FOR TRANFER.
--- NOTE | 2021-04-19 19:20 | NUR ---
RECEIVED REPORT FROM CCU RN. PATIENT ASSISTED TO ROOM 119 ON THE MEDICA FLOOR IV INFUSING PER ORDER. PATIENT RAEGAN ANY NEEDS. PATIENT IS ON 3L VIA NC.
--- NOTE | 2021-04-19 19:30 | NUR ---
TO MED SURG VIA CHAIR, IS ON O2 AT 4 LITERS. HAS OCC COUGH, WITH INCREASE PAIN IN LEFT CHEST WITH COUGH. SPLINTS LEFT UPPER CHEST WITH HAND WHEN COUGHING.
--- NOTE | 2021-04-19 20:30 | NUR ---
PATIENT ASSESEMENT COMPLETED. PATIENT REMAINS ON 3L VIA [place]. PATIENT DENIES ANY SOB. VITALS TAKEN AND RECORDED. PATIENT DENIES ANY PAIN. IV INFUSING PER ORDER. PATIENTS SCHEDULED MEDICATIONS GIVEN PER ORDER. PAIENTS BS IS 156. PATIENT REFUSED 1 UNIT OF SS INSULIN. PATIENT EDUCATED ON THE IMPORTANCE OF CONTRLLING DM. PATIENT VERBALIZES UNDERSTANDING. PATIENT CONTINUES TO REFUSE SS INSULIN. PATIENT DENIES ANY FURTHER NEEDS. SUGAR FREE APPLESAUCE PROVIDED TO PATIENT PER REQUEST. CALL LIGHT IN REACH.
--- NOTE | 2021-04-19 21:50 | NUR ---
SCHEDULED MEDICATIONS GIVEN PER ORDER. PATIENT IS RESTING IN BED WATCHING TV. PATIENT DENIES ANY NEEDS. CALL LIGHT IN REACH.
--- NOTE | 2021-04-19 23:21 | NUR ---
PATIENT IS RESTING IN BED WITH EYES CLSOED, RR 16. CALL LIGHT IN REACH. IV INFUSNG PER ORDER.
--- NOTE | 2021-04-20 01:37 | NUR ---
PATIENT IS RESTING IN BED WITH EYES CLOSED, RR 19. CALL LIGHT IN REACH. IV INFUSING PER ORDER.
--- NOTE | 2021-04-20 03:26 | NUR ---
PATIENT IS RESTING IN BED WITH EYES CLOSED, RR 15. CALL LIGHT IN REACH. IV INFUSING PER ORDER.
--- NOTE | 2021-04-20 05:57 | NUR ---
PATIENTS URINAL EMPTIED. INTAKE AND OUTPUT RECORDED. PATIENTS VITALS TAKEN AND RECORDED. SCHEDULED MEDICATIONS GIVEN PER ORDER. PATIENT DENIES ANY SOB. IV INFUSING PER ORDER. PATIENT COMPLAINS OF LIGHTS IN HALLWAY BEING TO BRIGHT. PATIENT STATED "I JUST DIDNT SLEEP GOOD". EDUCATED PATIENT THAT THE LIGHTS DONT TURN DOWN ANYMORE. PATIENT STATED "IT WAS DARKER IN THE OTHER PLACE". PATIENT OFFERED EYE MASK. PATIENT DENIED NEED. PATIENT DENIES ANY FURTHER NEEDS. CALL LIGHT IN REACH.
--- NOTE | 2021-04-20 07:00 | NUR ---
Report received from Romina PINON. Pt resting in bed with eyes closed, even and unlabored respirations. No needs identified, call light in reach. Will continue plan of care.
--- NOTE | 2021-04-20 08:00 | NUR ---
PT SLEEPING VERY HEAVILY. WHITE BOARD UPDATED, CALL LIGHT WITHIN REACH.
--- NOTE | 2021-04-20 08:30 | NUR ---
Scheduled medications administered, CBG checked, 171. Pt refuses SS 1 unit of insulin. IVF infusing WNL with IV cefepime. Pt uses urinal at bedside indepedently. 95% on 3L O2 at this time, he states chest discomfort is "not better and not worse", lung sounds clear but dim throughout. Reviewed plan of care, pt is somewhat disagreeable and states "he doesnt understand why we are doing what we are doing", this RN counsels regarding medications, oxygen, lab work, antibiotics. He states his understanding and has no questions.
--- NOTE | 2021-04-20 09:42 | NUR ---
PT REFUSED BREAKFAST. KATHRIN BENÍTEZ NOTIFIED. CALL LIGHT WITHIN REACH NO FURTHER NEEDS AT THIS TIME.
--- NOTE | 2021-04-20 10:00 | NUR ---
IV Cefepime complete, IV Vanco infusing at this time. Pt awake, watching tv. He states no needs at this time, call light in reach.
--- NOTE | 2021-04-20 12:08 | NUR ---
CBG checked, 180, pt refuses ordered 2units of SS insulin. IVF infusing WNL. Pt set up for lunch. He states no further needs
--- NOTE | 2021-04-20 14:38 | NUR ---
PT SEEMS AGITATED AND CRANKY. PT YELLED AT KITCHEN EMPLOYEE WHEN THEY CAME TO TAKE HIS DINNER ORDER. IN ROOM. CALL LIGHT WITHIN REACH, NO FURTHER NEEDS AT THIS TIME.
--- NOTE | 2021-04-20 15:00 | NUR ---
Scheduled medications administered, pt resting in bed, compliant with care, states no needs at this time
--- NOTE | 2021-04-20 15:48 | NUR ---
CONTACT [facility], BED SPACE AVAILABLE. H&P, PROGRESS NOTES, MED LIST, PT EVAL/NOTES AND OT EVAL FAXED TO [facility] FOR REVIEW.
--- NOTE | 2021-04-20 15:50 | NUR ---
Spoke with pt and his . Pt more awake today. Discussed need for return to [place] or a SNF and pt is in agreement. UPdated I will check for beds at the four SNFS in our area as this week there has not been any bed availability. Pt states he will only go to a SNF in [place]. UPdated he and his they can accept a bed when I find it, return to [place] when a bed opens, or go home at that time. We discussed critical access and inability for pts to remain here. We discussed when the DrDeanna decides the patient is ready for discharge they will need to discharge or more than like will have to pay out of pocket. We discussed Dr. will not discharge until he feels pt is ready for rehab. I let the pt and know, [facility] may have a bed open later this week. week.
--- NOTE | 2021-04-20 16:31 | NUR ---
Spoke with Erika from [facility] and she requests we send the pts chart. She would like to know if PT feels pt would be dischargable in 20 days. I spoke with Alessandra and she felt physically pt would be able to go home on HH in 20 days. I will update Erika in the am as she is gone for the day.
--- NOTE | 2021-04-20 17:00 | NUR ---
CBG checked, pt accepts 2units SS insulin per order. Pt up to shower with assistance from this RN and CLERK ENTRY LEVEL. Linens and gown changed. Pt briefly titrated to 4L NC O2 with ambulation and returned to 3L once back to bed and less SOB. Dressing remains C/D/I, supplies at bedside to change if needed. Pt states slight pain, tolerable, denies pain medications. Family at bedside, attentive to pt and engaged in care. Warm blankets provided, dinner ordered, no further needs
--- NOTE | 2021-04-20 17:25 | NUR ---
Spoke with Dr. Carrero who had phone conversation with pts surgeon. Pt will need to return for higher level of care. I will notify [facility] bed will not be needed as pt will need to return to [facility].
--- NOTE | 2021-04-20 18:37 | NUR ---
PT WATCHING MOVIE WITH . CALL LIGHT WITHIN REACH NO FURTHER NEEDS. KATHRIN BENÍTEZ NOTIFIED OF NO OUPUT. IN ROOM
--- NOTE | 2021-04-20 20:11 | NUR ---
in to see pt. pt awake and alert watching tv. nurse hand off report given. no needs or requests at this time. call light in reach.
--- NOTE | 2021-04-20 20:38 | NUR ---
scheduled medications given. no other needs noted, call light in reach.
--- NOTE | 2021-04-20 21:18 | NUR ---
in to assist pt to the rest room. pt voided and x-lg bm noted, soft, loose and brown. assited pat back to bed. no toher needs or request at this this. call light in reach.
--- NOTE | 2021-04-20 22:53 | NUR ---
IN TO SEE PT, ASSESSMENT AND SCHEDULED MEDICATIONS DUE. PT ALERT AND ORIENTED X3. PT DENIES PAIN. LEFT UPPER LOBE DIMINISHED ANTERIORLY AND POSTERIOR, OTHERWISE CLEAR THROUGHOUT. OXYGEN SATURATION 98% ON 3LNC. ASSITED PT UP LEILA THE RESTROOM AT THIS TIME. SCHEDULED ABX RUNNING AT THIS TIME. NO OTHER NEEDS OR REQUESTS AT THIS TIME. CALL LIGHT IN REACH.
--- NOTE | 2021-04-20 23:14 | NUR ---
in to assit pt back to bed from the restroom. extra large bm loose soft bm noted. no other needs or requests at this time. call light in reach.
--- NOTE | 2021-04-20 23:30 | NUR ---
DURING MEDICATION ADMINISTRATION IT WAS NOTED AFTER A SCANNING ERROR PT WAS GIVEN INCORRECT DOSE OF IV SOLU-MEDEROL. PLACED CALL TO MD, NO ANSWER AT THIS TIME.
--- NOTE | 2021-04-21 00:40 | NUR ---
IN TO SEE PT, IV VANCO COMPLETE. CEFIPIME CONTINUES RUNNING AT THIS TIME. IV FLUSHED, PT REPORTS IV PAINFUL WITH FLUSHING IV. NO REDNESS NOTED. WARM BLANKET WRAPPED AROUND IV SITE. WILL CONTINUE MONITOR. NO OTHER NEEDS OR REQUESTS AT THIS TIME. CALL LIGHT IN REACH.
--- NOTE | 2021-04-21 02:47 | NUR ---
IN TO SEE PT. PT SLEEPIN ON BACK WITH HOB ELEVATED. NO SIGNS OF PAIN NOTED. RR 20. IV ABX CONTINUE RUNNING AT THIS TIME. CALL LIGHT IN REACH.
--- NOTE | 2021-04-21 03:37 | NUR ---
PATIENT ASSISTED TO THE RESTROOM A SBA. PATIENT WAS ABLE TO VOID AND HAVE LARGE LIQUID BM. PATIENT IS BACK IN BED RESTING. DEMARCO PINON IN TO ASSES PATIENT. CALL LIGHT IN REACH.
--- NOTE | 2021-04-21 03:50 | NUR ---
IN TO SEE PT. ASSESSMNET DUE. IN BED AFTER USING RESTROOM. IV ABX COMPLETED. IV TO RFA AND LFA SALINE LOCKED AT THIS TIME. RFA IV FLUSING WELL. NO PAIN OR S/SX OF PHELIBITIS OR INFILTRATION NOTED. NO SOB NOTED. PT CONTINUES TO DO WELL OB 3LNC AT THIS TIME. NO OTHER NEEDS OR REQUESTS AT THIS TIME. CALL LIGHT IN REACH.
--- NOTE | 2021-04-21 05:39 | NUR ---
in to see pt. shceuled abx due. ivs fluding well at this itme. no c/o pain or s/sx of infiltration or phelibitis. no other needs or request at this time. call light in reach.
--- NOTE | 2021-04-21 07:30 | NUR ---
REPORT RECIEVED FROM POLICE RESERVES COMMANDER RN PATIENT IN BED RESTING, ON 3l NC, SUPERVISOR PIPELINE MAINTENANCE IN ROOM GETTING BLOOD SUGAR, DENIES ANY NEEDS AT THE MOMENT.
--- NOTE | 2021-04-21 07:48 | NUR ---
PLACED CALL TO MD AGAIN TO REPORT INCORRECT MEDICATION ADMINISTRATION. MD NOTIFIED. NO NEW ORDERS AT THIS TIME.
--- NOTE | 2021-04-21 08:02 | NUR ---
CALLED [facility] TO VERIFY THAT PATIENT WAS ON THE TRANSFER LIST AND HE IS NOT, DR IS AVAILABLE FOR RECOMMENDATIONS AND IF OUR DR WANTS PATIENT TO BE ON THE TRANSFER LIST HE NEEDS TO REQUEST A CONSULT TRANSFER. ALSO THEY ARE STILL ON [facility], BUT ARE WILLING TO PUT HIM ON THE LIST LONG YOU CAN GET PATIENT TO ACCEPT TRANSFER.
--- NOTE | 2021-04-21 08:27 | NUR ---
RN IN ROOM TO DO MORNING ASSESSMENT AND GIVE MEDS, DENIES ANY PAIN AT THE MOMENT, NO NEEDS AT THE MOMENT.
--- NOTE | 2021-04-21 10:30 | NUR ---
rounding on pt, sleeping in bed respiratory rate even and non labored, iv saline locked, no needs at the moment
--- NOTE | 2021-04-21 12:23 | NUR ---
rn in room to check blood glucose patient resting in bed, trat delivered to pt, asked patient if he would like to get up to the chair for lunch pt refused. 1 unit of insulin given no other needs at the moment
--- NOTE | 2021-04-21 15:00 | NUR ---
Spoke with pt and his . Pt stating his does not want to return to [facility]. He feels staff made fun of him and the care he received was of poor quality. We then discussed why Dr. Carrero and his surgeon would like him to return to [facility]. Discussed with pt we do no have a thoracic surgeon in this area and he needs to have his surgeon assist him. Pt cont. to state he wants to just stay here and after several minutes of discussion he realizes we cannot provide the level of care he needs. Pt and wifes concerns are the cost of travel, the time off needs to take from her job, and they don't like [facility]. We discussed Dr. Carrero is attempting to get him on the transfer list,but [facility] is on divert at this point. Pt states he will consider [facility], but may decline. We also discussed he may remain sob until he sees his surgeon and he completes surgical intervention.
--- NOTE | 2021-04-21 15:39 | NUR ---
rn in room due to iv beeping pt in bed wacthing tv denies pain at the moment, at bedside, no needsa the the moment
--- NOTE | 2021-04-21 19:30 | NUR ---
SHIFT REPORT RECEIVED FROM KHUSHI HOLLIS AT BEDSIDE. pt AWAKE AND RESTING IN BED, NO DISTRESS NOTED. RR EVEN AND UNLABORED, 3LNC IN PLACE. DRESSING TO LEFT LATERAL C/D/I, INCISION ABOVE DRESSING SHARDA, WELL APPROXIMATED. WILL MONITOR FOR CHANGES. BOARD UPDATED, CALL LIGHT IN REACH. KHUSHI HOLLIS REMAINS IN ROOM TO DC IV SITE.
--- NOTE | 2021-04-21 19:44 | NUR ---
rn removed L forearm IV, pt complaining of pain while flushing
--- NOTE | 2021-04-21 20:45 | NUR ---
pt REQUESTING SOMETHING FOR SLEEP, DR CROWDER AT RN STATION. VERBAL ORDER READ BACK FOR 6MG MELATONIN PO HS PRN. ADDITIONAL VERBAL ORDER READ BACK FOR 50MG TRAZODONE PO HS PRN. PER MD, TRY MELATONIN FIRST THEN GIVE TRAZODONE SECOND.
--- NOTE | 2021-04-21 21:14 | NUR ---
ASSESSMENT COMPLETE, SCHEDULED MEDS GIVEN (SEE EMAR). pt A/OX4, DENIES PAIN AND NAUSEA. PRN SLEEPING MEDICATION ALSO PROVIDED PER pt REQUEST. pt NOTED TO HAVE WATERY EYES, VERBALIZED CONCERNS REGARDING HEALTH, STATES, "WHAT IF I NEVER GET OUT OF HERE". THERAPEUTIC COMMUNICATION PROVIDED, CALL LIGHT IN REACH. IV ABX INFUSING DIRECTED, SITE WNL. FLUSHES EASILY. FRESH WATER PROVIDED, VSS AND I&O'S COMPLETED. 3LNC IN PLACE. NO ADDITIONAL NEEDS, CALL LIGHT IN REACH.
--- NOTE | 2021-04-21 22:35 | NUR ---
IN ROOM TO ADMINISTER IV ABX. pt RESTING IN BED WITH EYES CLOSED, RR EVEN AND UNLABORED. AWOKE EASILY TO VOICE. IV SITE WNL AND FLUSHES EASILY. pt DENIES PAIN AT IV SITE. IV VANCO AND IV CEFEPIME INFUSING DIRECTED, VIA Y-SITE. pt EDUCATED ON S/SX OF IV INFILTRATION AND PHLEBITIS, VERBALIZED UNDERSTANDING ON WHEN TO CALL MONUMENT MASON REGARDING IV INFUSIONS. pt DENIES NEED FOR ADDITIONAL PRN SLEEP AID, CALL LIGHT IN REACH.
--- NOTE | 2021-04-21 23:41 | NUR ---
ROUNDED ON pt, pt AWAKE AND SITTING AT EDGE OF BED, COUGHING NOTED. pt REPORTS INABILITY TO SLEEP. IV ABX INFUSING DIRECTED, IV SITE REMAINS WNL. pt DENIES PAIN AT SITE. SEVERE INTERACTION CAUSING POTENTIAL PROLONGED QT INTERVAL NOTED BETWEEN SCHEDULED IV LEVAQUIN AND NEWLY ORDERED PRN TRAZODONE. LEW FROM TELEPHARMACY SUGGESTS DISCUSSING ORDER WITH MD BEFORE ADMINISTERING TRAZODONE. DISCUSSED WITH BRIM FLEXERKATHRIN BILLS, WILL WAIT AND DISCUSS WITH MD. UPON ENTERING pt's ROOM, pt WAS LAYING BACK IN BED WITH EYES CLOSED, RR EVEN AND UNLABORED. pt LEFT UNDISTURBED AT THIS TIME, ALLOWED TO REST. CALL LIGHT IN REACH.
--- NOTE | 2021-04-22 00:18 | NUR ---
PRN TRAZODONE GIVEN, SEE EMAR. NO FURTHER NEEDS, CALL LIGHT IN REACH.
--- NOTE | 2021-04-22 01:13 | NUR ---
iv pump alarming, issue resolved. iv abx infusing as directed, iv site wnl. urinal emptied, call light in reach.
--- NOTE | 2021-04-22 02:37 | NUR ---
yulia from [facility] transfer center called and asked for pt update. update provided and questions answered. pharmacist in charge marta fermin.
--- NOTE | 2021-04-22 03:00 | NUR ---
ROUNDED ON pt, pt RESTING IN BED WITH EYES CLOSED. HOB ELEVATED, ASPIRATION PRECUATIONS REMAIN IN PLACE. IV SITE WNL, IV ABX COMPLETE-SALINE FLUSH INFUSING DIRECTED. IV SITE WNL. CALL LIGHT IN REACH, 2LNC REMAIN IN PLACE.
--- NOTE | 2021-04-22 03:49 | NUR ---
IV PUMP WAS BEEPING, IV ABX COMPLETE. IV IS SL. PT IS RESTING WITH EYES CLOSED, RR IS EVEN AND NONLABORED. CALL LIGHT IS CLOSE.
--- NOTE | 2021-04-22 06:30 | NUR ---
pt REFUSES TO ALLOW LAB TO DRAW AM LABS, STATING, "YOU CAN DO WHAT YOU NEED TO BUT NO BLOOD FROM ME". EDUCATION PROVIDED, pt CONTINUES TO REFUSE. WHEN FLUSHING IV SITE, pt GRIMACES AND REPORTS PAIN. IV SITE DC'D, CATHETER TIP INTACT. FIRST ATTEMPT BY THIS RN UNSUCCESSFUL D/T pt FLINCHING. BLOOD RETURN NOTED, BUT VEIN BLOWN. TOURNIQUET REMOVED. pt VERBALLY UPSET, THERAPEUTIC COMMUNICATION PROVIDED. KATHRIN MANE IN ROOM TO ATTEMPT, ATTEMPT SUCCESSFUL, 20G VIA LEFT FOREARM. AM LABS COLLECTED AND SENT TO LAB. IV ABX INFUSING DIRECTED, NEW IV SITE WNL. ASSESSMENT COMPLETE, NO ACUTE CHANGES. CALL LIGHT IN REACH.
--- NOTE | 2021-04-22 07:20 | NUR ---
report recieved from shift commander RN, pt sleeping in bed respiratory rate even and non labored, on 2L nc.
--- NOTE | 2021-04-22 07:36 | NUR ---
XRAY here to get patient to take patient to xray, patient refusing to go down. charge nurse notified.
--- NOTE | 2021-04-22 08:56 | NUR ---
PT RETURNED FROM IMAGING. IV ASSESSED, WNL. NO S/S OF PHELBITIS NOTED. IV ABX RESTRATED. PT RESTING IN BED. WARM BLANKET PROVIDED. NO ADDIITONAL REQUESTS OR COMPLAINTS. CALL LIGHT SOFIE CASTRO. PTS PRIMARY RN, TELMA, BENITO.
--- NOTE | 2021-04-22 09:20 | NUR ---
rn in room to administer morning medications, patient is complaining of pain with inspiration, prn 5mg oxycodone provided, currently on 2L nc respirations 20, 96% , offered to try showering later today patient refused. no other needs at the moment.
--- NOTE | 2021-04-22 11:30 | NUR ---
RN IN ROOM TO ROUND ON PT, IV BEEPING AND, FLUSHED AND SALINE LOCKED. NO NEEDS AT THE MOMENT
--- NOTE | 2021-04-22 12:11 | NUR ---
PT ASLEEP, O2 NC IN USE. DID NOT DISTURB-IV ALARM SOUNDING. KATHRIN HOLLIS WILL CARE FOR PT.
--- NOTE | 2021-04-22 12:38 | NUR ---
[facility] Transfer center called for update, no bed yet or time estimate.
--- NOTE | 2021-04-22 14:15 | NUR ---
RN in room to start iv abx, patient resting in bed denies any pain at the moment offered tylenol to try and stay on top of discomfort patient states he want to hold off for now. finished lunch and tray removed.
--- NOTE | 2021-04-22 15:30 | NUR ---
Dr muller rounded on pt, discussed with provider dressing on L side per provider ok to change, old dressing removed cleaned with saline and new 4x4 placed and tape over. tolerated well. site looks CDI no s/s of infection
--- NOTE | 2021-04-22 15:39 | NUR ---
Spoke with pt and reminded he has free trasportation with his insurance for all medical and dental. Pt spoke with Dr. Jama earlier and agrees to transfer to [facility] when bed opens or he may go AMA.
--- NOTE | 2021-04-22 15:48 | NUR ---
pt called out to the desk upset that they will not let his spouse up to visit he stated he did not know about the visitor policy states he will leave AMA if they do not let her in.as neighbor stopped by earlier to drop offf a gift. pt educated on the policy and made aware, per warehouse specialist we will allow spouse to come in today but going foward it is to be followed. patient understands and is thankful. po potasium pills given. denies any other needs at the the moment.
--- NOTE | 2021-04-22 17:46 | NUR ---
rn in room to collect MRSA swab pt educated and understands consents to swab, specimen collected and sent to lab, tolerated well
--- NOTE | 2021-04-22 18:00 | NUR ---
rn in room to aminister insulin with dinner blood glucose 328, 5units provided
--- NOTE | 2021-04-22 18:35 | NUR ---
rn in room to saline lock pt, denies any needs at the moment, ate 100% of dinner. spouse at bedside call light within reach
--- NOTE | 2021-04-22 19:00 | NUR ---
SHIFT REPORT RECEIVED FROM DAYSHIFT KATHRIN HOLLIS AT BEDSIDE. pt RESTING IN BED, AWAKE. 2LNC IN PLACE. RR EVEN AND UNLABORED. GIRLFRIEND IN ROOM. NO NEEDS VERBALIZED, CALL LIGHT IN REACH.
--- NOTE | 2021-04-22 20:00 | NUR ---
IN TO GET VITALS, RM TITIED, URNAL EMPTIED, PT ASKS ABOUT HIS SLEEPING PILL, RN IS AWARE
--- NOTE | 2021-04-22 20:40 | NUR ---
ASSESSENT COMPLETE, SCHEDULED MEDS GIVEN (SEE EMAR). VSS, 2LNC IN PLACE. pt DENIES PAIN AND NAUSEA. IV SITE WNL, IV ABX INFUSING DIRECTED. CALL LIGHT IN REACH. PRN SLEEP AID ALSO PROVIDED.
--- NOTE | 2021-04-22 22:15 | NUR ---
IN ROOM TO ROUND ON pt, pt AWAKE AND REPORTS INABILITY TO SLEEP AND STATES, "MAYBE TOMORROW I'LL JUST CHECK MYSELF OUT OF HERE, NOBODY IS DOING ANYTHING FOR ME AND I CAN'T SLEEP". pt ALREADY GIVEN BOTH AVAILABLE PRN SLEEP MEDICATIONS, THIS RN SPOKE TO DR CROWDER ON THE PHONE. TELEPHONE ORDER READ BACK TO INCREASE pt's PRN PO TRAZODONE FROM 50MG TO 150MG. ONE TIME DOSE 100MG PO TRAZODONE ORDERED FOR TONIGHT ( pt ALREADY HAD 50MG EARLIER IN SHIFT). AND TRAZODONE ORDER UPDATED IN EMAR. NO FURTHER NEEDS, BANDER AND CELLOPHANER MACHINEKATHRIN BILLS IN ROOM TO GIVE SCHEDULED IV ABX.
--- NOTE | 2021-04-22 22:46 | NUR ---
IN ROOM TO ADMINISTER PT'S IV ABX AND ONE TIME DOSE OF 100MG TRAZADONE TO EQUAL 150MLS FOR TONIGHT'S TOTAL DOSE. EMPTIED PT'S URINAL, PT DENIES FURTHER NEEDS AT THIS TIME. CALL LIGHT IS CLOSE. IV IS INFUSING FINE.
--- NOTE | 2021-04-22 23:30 | NUR ---
pt RESTING IN BED WITH EYES CLOSED, RR EVEN AND UNLABORED. 2LNC REMAINS IN PLACE. IV SITE WNL, IV ABX INFUSING DIRECTED. CALL LIGHT IN REACH.
--- NOTE | 2021-04-23 01:15 | NUR ---
JOCELYN FROM [facility] CALLED AND ASKED FOR pt UPDATE. UPDATE PROVIDED, ALL QUESTIONS ANSWERED. WELDING MACHINE OPERATOR/TENDER NEGAR BARRY.
--- NOTE | 2021-04-23 02:38 | NUR ---
pt RESTING IN BED WITH EYES CLOSED, RR EVEN AND UNLABORED. 2LNC REMAINS IN PLACE, SPO2 98%, HR 88. NO DISTRESS NOTED, CALL LIGHT IN REACH. IV SITE WNL, IV ABX INFUSING DIRECTED.
--- NOTE | 2021-04-23 04:39 | NUR ---
ROUNDED ON pt, pt RESTING IN BED WITH EYES CLOSED. RR EVEN AND UNLABORED, 2LNC IN PLACE. URINAL EMPTIED, CALL LIGHT IN REACH. IV SITE TKO TO ALLOW pt TO SLEEP, IV SITE WNL.
--- NOTE | 2021-04-23 04:45 | NUR ---
pt HAD AN UNEVENTFUL NIGHT, CARE CLUSTERED TO PROMOTE REST. PO TRAZODONE INCREASED FROM 50MG PO TO 150MG PO. A/OX, SBA WITH FWW. 60G CARD DIET, DENIED NAUSEA. BT ACTIVE, SCHEDULED ACCUCHECKS WITH INSULIN SS. pt SALINE LOCKED, IV SITE WNL. SCHEDULED IV LEVAQUIN, CEFEPIME, AND IV VANCO. VSS, 2LNC-CHRONIC. [facility] CALLED THIS HIFT FOR pt UPDATE-UPDATE PROVIDED. POC IS TO TRANSFER pt WHEN BED BECOMES AVAILABLE. LEFT LATERAL INCISION, ISSUING OPERATOR, APPROXX 15CM IN LENGTH AND WELL APPROXIMATED. ADDITIONAL LEFT LATERAL INCISION FROM PREVIOUS CHEST TUBE AT [facility] REMAINS COVERED WITH DRESSING. pt IRRITABLE AT TIMES REGARDING CARE, BUT APPEARED TO HAVE SLEPT WELL AND RESTED THIS SHIFT.
--- NOTE | 2021-04-23 06:31 | NUR ---
SCHEDULED IV VANCO AND IV CEFEPIME INFUSING DIRECTED. IV SITE WNL, FLUSHES EASILY. WHEN ASKED IF IV SITE HURTS, pt STATES IMPATIENTLY, "I'D TELL YOU IF IT DID". NO ACUTE CHANGES, WHEN pt AWOKE FOR AM MEDS, pt STATES, "WHY DOES IT HAVE TO BE RIGHT NOW, I'M NOT GETTING ANY SLEEP". pt EDUCATED ON TIMING OF MEDICATIONS. pt REMAINS IRRITABLE. CALL LIGHT IN REACH. pt REFUSES AM LABS AT THIS TIME, WILL HAVE LAB RETURN AFTER BREAKFAST. SPLIT LEATHER MOSSER NEGAR BARRY.
--- NOTE | 2021-04-23 07:15 | NUR ---
report recieved from sheet rock applier rn, pt appears to be sleeping, on 2L NC RR even and non labored, call light within reach.
--- NOTE | 2021-04-23 08:10 | NUR ---
patient blood glucose 125, no insulin needed this morning for breakfast.
--- NOTE | 2021-04-23 09:15 | NUR ---
RN in room to do morning assessment and give patient scheduled medications, condenser winder in room to do vs, cares clustered per pt request denies any needs at the moment, 2L nc, no pain, tolerating diet.
--- NOTE | 2021-04-23 09:32 | NUR ---
talked with pharmacist grisel about pt vancomycin and trough, she reviewed the chart and ordered one for 1330 today
--- NOTE | 2021-04-23 11:01 | NUR ---
rn in room rounding on pt, pt awake wacthing tv, lunch ordered for him, urinal emptied and denies any other needs
--- NOTE | 2021-04-23 12:26 | NUR ---
CELERY STRIPPER reported to rn that patient is having shortness of breath, RN in room to assess pt sating 96% on 2L nc [address] Jama notified per provider titrate o2 up and give a breathing treatment, will repeat chest xray.
--- NOTE | 2021-04-23 13:09 | NUR ---
PT TAKEN DOWN TO XRAY
--- NOTE | 2021-04-23 14:01 | NUR ---
rn checking on pt, reports shortness of breath is a little better waiting on xray results
--- NOTE | 2021-04-23 14:34 | NUR ---
rn in room to start iv abx pt sitting in bed, vital signs done, dr muller in rounding on pt denies any needs at the moment. educated to call if he starts to feel worse
--- NOTE | 2021-04-23 16:45 | NUR ---
mariosl from [facility] transfer center called and updated on pt condition, verified all imaging being sent to them for team, pt notified, dr magaña made aware and number for transfer center provided.
--- NOTE | 2021-04-23 17:15 | NUR ---
rn in room to adminsiter insulin with dinner, blood glucose 293 4units of humalog provided, pt denies any needs at the moment.
--- NOTE | 2021-04-23 18:05 | NUR ---
rn called in room pt complaining of worsening sob, in to assess RR in 30. DR Jama notified, RT called to assess, order for EKG
--- NOTE | 2021-04-23 18:26 | NUR ---
DR CROWDER IN ROOM ASSESSING PT
--- NOTE | 2021-04-23 18:34 | NUR ---
PT ASSISSTED TO LAY BACK DOWN IN BED SEEMS TO BE RESTING ANS RR DECREASING, SPOUSE AT BEDSIDE, ON 4L NC RR 20 HR 107.
--- NOTE | 2021-04-23 18:47 | NUR ---
nancy ordered by dr muller, patient agrres to try medication.
--- NOTE | 2021-04-23 19:05 | NUR ---
SHIFT REPORT RECEIVED FROM FELIXCAANNIA HOLLIS AT BEDSIDE. pt AWAKE AND RESTING IN BED, 4LNC IN PLACE. pt APPEARS TO BE RELAXING, GIRLFRIEND MYRNA IN ROOM. HR 110, SPO2 MID 90'S. IV SITE WNL, SALINE LOCKED. pt REPORTS EAGERNESS TO HAVE HIS DOG SUSAN COME VISIT HIM TOMORROW IN HOSPITAL. CALL LIGHT IN REACH. BOARD UPDATED.
--- NOTE | 2021-04-23 19:50 | NUR ---
IN TO GET VITALS, I&0s DONE, GIRLFRIEND AT BEDSIDE, PT IS CONTENT AT THIS TIME
--- NOTE | 2021-04-23 20:32 | NUR ---
ASSESSMENT COMPELTE, SCHEDULED MEDS GIVEN ALONG WITH PRN MELATONIN (SEE EMAR). pt AWAKE AND RESTING IN BED, GIRLFRIEND REMAINS IN ROOM. pt INTERACTIVE WITH STAFF AND JOKING. pt CONTINUES TO REPORTS SOME SOB, BUT REPORTS IT IS "BETTER THAN IT WAS". RR EVEN AND UNLABORED, CURRENTLY 23. NO DISTRESS NOTED, WILL CONTINUE TO MONITOR. DENIES PAIN OF ANY KIND WELL NAUSEA. VSS, pt REMAINS TACHY BUT IMPROVING AND WITHIN PARAMETERS. 4LNC REMAINS IN PLACE. IV SITE WNL, BLOOD RETURN NOTED. pt DENIES PAIN AT SITE, IV ABX INFUSING DIRECTED. CALL LIGHT IN REACH.
--- NOTE | 2021-04-23 20:46 | EKG ---
[facility] [address] [facility] [place], [place] [address] Signed Sinus tachycardia Otherwise normal ECG When compared with ECG of 28-APR-2016 15:38, No significant change was found Confirmed by BEN CROWDER DO ([id number]) on 04/23/2021 8:46:43 PM Electronically Signed By: BEN CROWDER DO 04/23/212045 PATIENT NAME: RALPH BECKER Electrocardiogram DATE OF : 62 PHYSICIAN: BEN CROWDER DO REPORT #: [id number] REPORT IS CONFIDENTIAL AND NOT TO BE RELEASED WITHOUT AUTHORIZATION
--- NOTE | 2021-04-23 22:13 | NUR ---
SCHEDULED IV VANCO AND IV CEFEPIME INFUSING DIRECTED, IV SITE WNL. pt TITRATED FROM 4LNC TO 3LNC, SPO2 REMAINS IN MID 90'S. pt APPEARS RELAXED, NO OUTWARD S/SX OF ANXIETY, SOB, OR DYSPNEA NOTED. WILL CONTINUE TO MONITOR, CALL LIGHT IN REACH.
--- NOTE | 2021-04-23 23:14 | NUR ---
pt RESTING IN BED WITH EYES CLOSED. 3LNC IN PLACE. IV ABX INFUSING, IV SITE WNL. CALL LIGHT IN REACH, FAMILY REMAINS IN ROOM.
--- NOTE | 2021-04-23 23:48 | NUR ---
IV PUMP ALARMING, ISSUE RESOLVED. IV CEFEPIME CONTINUES TO INFUSE DIRECTED, IV SITE WNL. RR 16, 3LNC REMAINS IN PLACE. CALL LIGHT IN REACH AND GIRLFRIEND MYRNA REMAINS IN ROOM.
--- NOTE | 2021-04-24 02:18 | NUR ---
pt RESTING IN BED WITH EYES CLOSED, RR EVEN AND UNLABORED. 3LNC REMAIN IN PLACE. IV ABX INFUSING DIRECTED, IV SITE WNL. CALL LIGHT IN REACH.
--- NOTE | 2021-04-24 04:28 | NUR ---
pt CONTINUES TO REST IN BED WITH EYES CLOSED, RR EVEN AND UNLABORED. NO DISTRESS NOTED. 2LNC REMAINS IN PLACE. CALL LIGHT IN REACH.
--- NOTE | 2021-04-24 06:15 | NUR ---
IN TO GET VITALS, I&Os, RN IN , NO FURTHER NEEDS AT THIS TIME
--- NOTE | 2021-04-24 06:30 | NUR ---
ASSESSMENT COMPLETE, NO ACUTE CHANGES. pt DROWSY BUT AWOKE TO VOICE. IV SITE WNL, FLUSHES EASILY. pt DENIES PAIN WITH FLUSH. IV ABX INFUSING DIRECTED. pt DENIES PAIN AND NAUSEA. VSS, 3LNC IN PLACE. CALL LIGHT IN REACH.
--- NOTE | 2021-04-24 09:20 | NUR ---
Vistaril 25mg po admin for anxiety.
--- NOTE | 2021-04-24 10:20 | NUR ---
PATIENT IN BED WATCHING TV. VITALS AND I&O'S CHARTED. PATIENT SAID SHOWER MAYBE LATER. CALL LIGHT IN REACH. NO FURTHER NEEDS AT THIS TIME.
--- NOTE | 2021-04-24 11:37 | NUR ---
Patient in bed resting, eyes closed, respirations non labored. Patient remains on 3L oxygen per nc. Patient denies chest pain. Patient denies any current needs. Personal supplies and call light within reach.
--- NOTE | 2021-04-24 12:19 | NUR ---
Patient resting in chair, no distress, respirations non labored. Patient appears comfortable. Significant other at bedside visiting. Patient waiting on lunch order. No current needs.
--- NOTE | 2021-04-24 14:59 | NUR ---
PATIENT IN BED RESTING WITH EYES CLOSED. VITALS AND I&O'S CHARTED. CALL LIGHT IN REACH. NO FURTHER NEEDS AT THIS TIME.
--- NOTE | 2021-04-24 16:06 | NUR ---
Patient sitting up in chair watching tv, respirations non labored. Patient reports he has no acute respiratory distress. Patient has been on 3L of oxygen per nc throughout this shift. Dinner ordered. Patient denies pain. No current needs.
--- NOTE | 2021-04-24 17:28 | NUR ---
Vistaril 25mg po admin for anxiety.
--- NOTE | 2021-04-24 18:37 | NUR ---
PATIENT IND IN ROOM. PATIENT IN BED AT THIS TIME WATCHING TV. VITALS AND I&O'S CHARTED. CALL LIGHT IN REACH. NO FURTHER NEEDS AT THIS TIME.
--- NOTE | 2021-04-24 19:39 | NUR ---
BEDSIDE REPORT FROM Peggy Velázquez RN, PT LAYING IN BED ALERT AND ORIENTED, NO DISRTESS NOTED.
--- NOTE | 2021-04-24 19:52 | NUR ---
V/S AND BLOOD SUGAR CHECK DONE.
--- NOTE | 2021-04-24 20:10 | NUR ---
PT RESTING IN BED REPORTS PAIN 6/10 COMES AND GOES, HE REQUESTS PAIN MEDICATIONS, OXYCONDONE 5MG PO PRN GIVEN WELL MELATONIN PRN FOR SLEEP. PT WANTS ALL CARE COMPLETE SO HE CAN SLEEP. ASSESSMENT COMPLETE, HS MED PASS COMPLETE.
--- NOTE | 2021-04-24 22:33 | NUR ---
PT RESTING IN BED SUPINE, RR EVEN 17 BPM NO DISTRESS NOTED.
--- NOTE | 2021-04-24 22:45 | NUR ---
MILAGROS FROM [facility] CALLED FOR UPDATE AT THIS TIME, GAVE UPDATE, PT ANXIETY BETTER TODAY, HE IS CURRENTLY SLEEPING, HE HAS CT YESTURDAY NO REPORT AVAILABLE IN COMPUTER AT THIS TIME. ACCORDING TO PROGRESS NOTE NO P.E. NOTED.
--- NOTE | 2021-04-24 23:26 | NUR ---
IV PUMP ALARMING, TUBING BACK PRIMED. ANTIBIOTIC NOW INFUSING WNL. pt SLEEPING, AWAKENS TO VOICE. OXYGEN REAPPLIED TO NARES. pt CLOSING EYES. CALL LIGHT WITHIN REACH.
--- NOTE | 2021-04-25 01:37 | NUR ---
PT UP AT BEDSIDE TO VOID IN URINAL. NO DISTRESS NOTED, PT HFAS NO REQUESTS OR CONCERNS AT THIS TIME.
--- NOTE | 2021-04-25 02:36 | NUR ---
PT RESTING IN BED LATERALLY ON RIGHT SIDE, EYES CLOSED RR EVEN 18 BPM, NO DISTRESS NOTED, URINAL EMPTIED FOR 850ML CLEAR YELLOW URINE, ABX INFUSING WNL, CALL LIGHT IN REACH
--- NOTE | 2021-04-25 05:01 | NUR ---
PT SLEPT WELL OVER SHIFT, UP TO BEDSIDE TO VOID IN URINAL, HE WAS ADMINISTERED OXYCODONE PRN WITH HS MED PASS WELL MELATONIN, HE HAS NOT HAD COMPLAINT OF PAIN SINCE, HE HAS NOT HAD ANY NAUSEA, URINE OUT QUANTITY SUFFICIENT. AFEBRILE, V/S STABLE.
--- NOTE | 2021-04-25 06:55 | NUR ---
PT LEFT FA IV SITE, LEAKING, ON ASSESSMENT IS STARTING TO INFILTRATE SLIGHTLY RED AROUND SIGHT. NEW IV SITE STARTED ON RIGHT FA. PT TOLERATED WELL.
--- NOTE | 2021-04-25 07:57 | NUR ---
MORNING ASSESSMENT DONE. PATIENT DENIES PAIN OR NAUSEA, IS NOT SURE HE WANTS TO EAT BREAKFAST. PATIENT IS ON 3L OF OXYGEN, NO SOB NOTED. [facility]ERY SITE INCISIONS ARE CDI, WELL APPROXIMATED. LEFT LATERAL CHEST TUBE SITE IS COVERED WITH GUAZE, NO DRAINAGE NOTED. PATIENT DENIES NEEDING ANY PRN MEDICATIONS.
--- NOTE | 2021-04-25 09:14 | NUR ---
MORNING MEDICATIONS GIVEN, PATIENT DENIES OTHER NEEDS.
--- NOTE | 2021-04-25 09:15 | NUR ---
PATIENT IN BED WATCHING TV AT THIS TIME. VITALS AND I&O'S CHARTED. PATIENT REFUSED SHOWER AND AM CARE AT THIS TIME. CALL LIGHT IN REACH. NO FURTHER NEEDS AT THIS TIME.
--- NOTE | 2021-04-25 10:09 | NUR ---
Called and spoke Rosa M Gaines Will. Requested if she is aware of any services available for cancer pts. Pt had requested this on Sunday and she had already left. She is a friend of this pt and will visit him.
--- NOTE | 2021-04-25 11:28 | NUR ---
CHW MET WITH PATIENT. DISCUSSED RESOURCES AVAILABLE FOR POSSIBLE FUNDING. PROVIDED 04/12 CANCER CARE LINE AND 211 FOR LOCAL RESOURCES. PATIENT STATED HE IS UPSET WITH HOW THINGS WENT AT [facility] AND HAS SOME CONCERNS FOR GOING BACK TO THE HOSPITAL. CHW DISCUSSED OPTIONS FOR SUPPORT SUCH COMMUNITY COUNSELING SOLUTIONS AND OR PASTORAL CARE. PATIENT STATED HE IS NOT FAITH BUT WOULD LIKE TO HAVE A DISCUSSION WITH PASTORAL CARE. HE IS CONCERNED TO LEAVE HIS GIRLFIEND ARANZA ALL THEY HAVE IS EACH OTHER. ARANZA DOESN'T LIKE TO BE ALONE. PATIENT CONCERNED WITH THE FINANCES AND PAYING FOR THE GAS TO GO TO AND FROM [facility] IN [place]. CHW DISCUSSED SINCE HE IS ON [place] THE MILEAGE CAN BE REIMBURSED FOR MEDICAL REASONS. CHW WILL PROVIDE THE APPLICATION TO HAVE PATIENT AND HIS GIRLFIRIEND ARANZA FILL OUT. CHW PROVIDED CONTACT NUMBERS TO CONTACT CHW FOR FURTHER RESOURCES AND OR HELP.
--- NOTE | 2021-04-25 11:32 | NUR ---
CHW CONTACTED PASTORAL CARE- PASTOR AMADO-NOTIFIED OF PATIENT DISCUSSING POSSIBLITY OF WANTING TO TALK WITH PASTORAL CARE. PASTOR AMADO STATED HE WILL GO AND TALK WITH PATIENT.
--- NOTE | 2021-04-25 12:32 | NUR ---
PATIENT SITTING UP TO CHAIR TO EAT LUNCH, GIVEN SCHEDULED SEROQUEL, DENIES OTHER NEEDS.
--- NOTE | 2021-04-25 13:00 | NUR ---
Spoke with Isai. He cont. to have anxiety, with extreme anxiety and sob at times. He cont. to wait for a bed at [facility]. Dr. Jama updated and he will order seroquel additional dose in the am.
--- NOTE | 2021-04-25 14:06 | NUR ---
PT IS ALERT, ORIENTED AND SITTING IN CHAIR USING O2 NC. PERCY DEE HAD JUST BEEN WITH PT. PT IS PLEASANT, DISCUSSED HIS DIFFICULTY WITH JUST WAITING FOR [facility]. HIS FIRST VISIT HE WAS NOT PLEASED WITH CARE HE RECEIVED, BUT DID EXPRESS THAT HE IS VERY PLEASED WITH CARE AT [facility]. DISCUSSED AND DEBRIEFED ON HIS FRUSTRATION, AND NOT SURE HE WANTS TO RETURN TO [facility] FOR CARE BECAUSE OF PREVIOUS EXPERIENCE. PT REQUESTED PRAYER, GAVE G.POST AND WILL FOLLOW. PERCY DEE HAD CALLED ME AND REQUESTED I VISIT WITH PT
--- NOTE | 2021-04-25 14:14 | NUR ---
PATIENT RESTING IN BED, IV CEFAPIME INFUSING FOR 4 HOURS, IV VANCO INFUSING FOR 1 HOUR. PATIENT DENIES NEED FOR PAIN MEDICATIONS.
--- NOTE | 2021-04-25 14:18 | NUR ---
PATIENT IN BED RESTING AND WTCHING VIDEOS ON PHONE. VITALS AND I&O'S CHARTED. CALL LIGHT IN REACH. NO FURTHER NEEDS AT THIS TIME.
--- NOTE | 2021-04-25 14:28 | NUR ---
PATIENT STATES HIS APPETITE HAS IMPROVED SINCE ADMISSION. HE STATES HE SOMETIMES DOESN'T KNOW THE ENSURE IS COMING SO HE DOESN'T GET TO IT AND THEN IT GETS TOO WARM. HE WOULD LIKE TO CONTINUE TO RECEIVE CHOCOLATE OR STRAWBERRY ENSURE WITH EACH MEAL.
--- NOTE | 2021-04-25 14:28 | NUR ---
PATIENT UP TO BATHROOM TO .
--- NOTE | 2021-04-25 14:39 | NUR ---
PATIENT UP TO BATHROOM TO .
--- NOTE | 2021-04-25 16:48 | NUR ---
PATIENT SITTING UP AND VISITING WITH HIS GIRLFRIEND, DENIES NEEDS.
--- NOTE | 2021-04-25 17:45 | NUR ---
PATIENT GIVEN 2 UNITS OF SQ HUMALOG FOR BG OF 183
--- NOTE | 2021-04-25 18:12 | NUR ---
PATIENT IN CHAIR WATCHING TV. VITALS AND I&O'S CHARTED. LINENS CHANGED. CALL LIGHT IN REACH. NO FURTHER NEEDS AT THIS TIME.
--- NOTE | 2021-04-25 19:34 | NUR ---
THIS RN RECEIVED SHIFT REPORT FROM KATHRIN QUEVEDO. PATIENT RESTING IN BED ANDWOULD LIKE SOME PAIN MEDICATION FOR HIS SURGICAL SITE 11/20 PAIN AND SOME ANXIETY MEDICATION. INFORMED PATIENT I WOULD BE BACK AROUND SOON I FINISHED ROUNDS. PATIENT VERBALIZED UNDERSTANDING. CALL LIGHT IN REACH.
--- NOTE | 2021-04-25 20:53 | NUR ---
IN TO GIVE PAIN AND ANXIETY MEDS, WHICH WER GIVEN BY THIS RN. 12/21 PAIN FROM LEFT SURGICAL SIGHT. JOVANNA BARBOSA IN TO HELP WITH VS AND I+O. PATIENT'S ICE WATER REFILLED AND ALL MEDS ADMINISTERED. PM ASSESSMENT COMPLETE. PATIENT HAS NO OTHER CARE NEEDS AT THIS TIME. CALL LIGHT IS IN REACH.
--- NOTE | 2021-04-25 22:24 | NUR ---
PATIENT RESTING QUIETLY NOW, EYES CLOSED, RESPIRATIONS ARE REGULAR AND EVEN, IN LOW FOWLERS POSITION, NO SIGNS OR SYMPTOMS OF PAIN NOTED. CALL LIGHT IN REACH.
--- NOTE | 2021-04-26 00:29 | NUR ---
PATIENT RESTING QUIETLY IN SEMI-FOWLERS POSITION, EYES CLOSED, RESPIRATIONS ARE REGULAR AND EVEN, AND CALL LIGHT IS IN REACH.
--- NOTE | 2021-04-26 01:00 | NUR ---
ADELINE FROM THE [facility] CALLED FOR A PATIENT UPDATE WHICH WAS GIVEN BY THIS RN. ADELINE INFORMED ME THAT UNFORTUNATELY THEY STILL DO NOT HAVE A BED AVAILABLE AND WILL CHECK IN WITH US AGAIN LATER.
--- NOTE | 2021-04-26 01:32 | NUR ---
PT CALLED, IV RFA WITH DISTAL OCCLUSION. NOTED RFA WITH SWELLING, NO PAIN. IV DC'D. PRIMARY RN IN TO START ANOTHER RN.
--- NOTE | 2021-04-26 01:45 | NUR ---
NEW 22G IV STARTED AND NS LOCKED IN THE LEFT HAND, FLUSHES WELL, GOOD BLOOD RETURN. PATIENT HAS NO OTHER NEEDS AT THIS TIME. PATIENT DENIES THE NEED FOR ANY PAIN MEDICATION. CALL LIGHT IN REACH AND LIGHTS TURNED DOWN AT PATIENT'S REQUEST.
--- NOTE | 2021-04-26 04:03 | NUR ---
PATIENT RESTING QUIETLY IN LOW FOWLERS POSITION, RESPIRATIONS ARE REGULAR AND EVEN, EYES ARE CLOSED, RESPIRATIONS ARE REGULAR AND EVEN, AND URINAL EMPTIED FOR 700MLS. PATIENT HAS NO NOTED CARE NEEDS AT THIS TIME. CALL LIGHT IS IN REACH.
--- NOTE | 2021-04-26 05:33 | NUR ---
PATIENT WAS SLEEPING WHEN COMING INTO DUE ASSESSMENT. KATHRIN MANE OBTAINED VS AND I+O. PATIENT PHYSICAL ASSESSMENT UNCHANGED FROM EARLIER ASSESSMENT. THIS RN ASKED PATIENT IS HIS PAIN WAS WELL CONTROLLED THROUGH THE NIGHT AND PATIENT SAID,"YES I WAS VERY COMFORTABLE, THANK YOU". PATIENT DENIES NEED FOR ANY OTHER CARE NEEDS AT THIS TIME. CALL LIGHT IN REACH, AM IV'S HUNG, AND LIGHTS TURNED DOWN AT PATIENT'S REQUEST.
--- NOTE | 2021-04-26 07:20 | NUR ---
THIS RN RECEIVED REPORT FROM JOSE PINON. PT APPEARS TO BE RESTING COMFORTABLY AT THIS TIME WITH RESPIRATIONS NOTED.
--- NOTE | 2021-04-26 08:20 | NUR ---
THIS RN IN PTS ROOM TO GET PTS BLOOD SUGAR. PT APPEARS TO BE RESTING AT THIS TIME, AWAKENS NICELY FROM REST. NEEDS NOTHING ELSE AT THIS TIME
--- NOTE | 2021-04-26 08:48 | NUR ---
PT WAS IN BED. PT REFUSED TO GET UP INTO THE CHAIR. WHITEBOARD UPDATED, CALL LIGHT IS WITHIN REACH. NO FURTHER NEEDS AT THIS TIME.
--- NOTE | 2021-04-26 09:45 | NUR ---
THIS RN IN PTS ROOM TO GIVE PT THE REST OF HIS AM MEDS. PT STATES THAT IS DOING WELL THIS AM. PT DENIES PAIN BAD ENOUGH TO TAKE A PAIN MED THIS AM. PT APPEARS CALM AND QUIET THIS AM, HAS NO CONCERNS TO REPORT.
--- NOTE | 2021-04-26 10:18 | NUR ---
PATIENT BENJAMIN, SAID [facility] WAS ON THE PHONE AND HE NEEDED TO SEE THE DOCTOR. DR. CROWDER NOTIFIED. PATIENT AGITATED AND AT DOOR OF ROOM. THIS STAFF IN ROOM TO TALK TO PATIENT, HE SAID, "THEY HUNG UP ON ME, IM SICK OF BEING LIED TO!" I ENCOURAGED PATIENT TO WAIT FOR THE DOCTOR, HE REQUIRED OXYGEN. PATIENT SAID, "I'M CALLING MYRNA TO COME PICK ME UP." NURSE AND DR. CROWDER UPDATED.
--- NOTE | 2021-04-26 10:30 | NUR ---
THIS RN WAS NOTIFIED THAT PT RECEIVED A PHONE CALL IN REGARD TO [facility] QUESTIONING TO WHY HE WAS IN THE HOSPITAL. PT THREATENING TO GO AMA. THIS RN IN ROOM TO DISCUSS WITH PT. IN ROOM WELL. PT ADAMENT THAT HE IS GOING AMA. THIS RN TOOK CALLED THE PHONE # THAT CALLED HIM FROM [facility]- OUTPATIENT SERICES FROM ONCOLOGY AND HEMATOLOGY- THIS RN SPOKE WITH ORCHESTRA LEADER AND THEN WAS PLACED ON HOLD TO SPEAK WITH THE [employer] FABRICATOR- CHERYL WHO WAS FAMILIAR WITH PT. THIS LEFT PHONE NUMBER TO BE CALLED BACK BY PA. PHONE NUMBER IN QUESTION [phone].
--- NOTE | 2021-04-26 10:53 | NUR ---
PATIENT GIVEN VISTARIL. PATIENT ENDORSED THAT HE IS WILLING TO STAY.
--- NOTE | 2021-04-26 11:15 | NUR ---
Spoke with pt and he states he got very excited earlier and sob. He recieved a call from OP at [facility] and they were questioning why he was in the hospital. Rosa M Gaines CHW and friend was called and pt was able to calm down. He states he plans on cont. to stay and to go to [facility] when a bed opens.
--- NOTE | 2021-04-26 11:30 | NUR ---
THIS RN SPOKE WITH SOFIA BENJAMIN ABOUT PTS CARE. SHE WAS UNDER THE IMPRESSION THAT PT WAS NOT WILLING TO BE TRANSFERRED, ALTHOUGH HE IS. SHE WAS UNDERSTANDING THAT PT WAS GOING TO BE TREATED HERE AND THEN GO HOME. THIS RN DISCUSSED WITH PT ABOUT THE MISUNDERSTANDING. PT MORE CALM AND STATES UNDERSTANDING OF THE MISUNDERSTANDING.
--- NOTE | 2021-04-26 11:36 | NUR ---
CHW MET WITH PATIENT IN PATIENT ROOM. PATIENT UPSET HE WANTS TO LEAVE HE HAS WAITED LONG ENOUGH TO GO TO [facility] AND HE IS TIRED OF WAITING. HE RECVD A CALL FROM HIS ONCOLOGIST OFFICE AND THEY DID NOT KNOW HE WAS CURRENTLY INPATIENT. PATIENT BECAME UPSET BECAUSE HE THOUGHT THEY SHOULD HAVE KNOWN BY NOW. EVELYN PINON NOTIFIED-SHE WAS ON HOLD WITH THE ONCOLOGY OFFICE. EVELYN PINON CAME BACK INTO THE ROOM WITH ME AND DISCUSSED WITH PATIENT THE PROCESS OF NOTIFYING WITH MEDICAL RECORDS AND [facility] MAY NOT HAVE SENT THE RECORDS YET TO THE OUTPATIENT ONCOLOGY OFFICE BUT KATHRIN RIVAS NOTIFIED THE OFFICE. EVELYN PINON NOTIFIED AND EDUCATED PATIENT ABOUT THE POSSIBITY OF PICC LINE PLACEMENT DUE TO MULTIPLE iv STARTS AND PATIENT PAIN CURRENTLY AT HIS IV SITE ON HIS LEFT HAND. PATIENT AGREED TO THE PICC LINE PLACEMENT AND WOULD LIKE PAIN MEDICATION AND ANXIETY MEDICAITON BEFORE THE PLACEMENT OF THE PICC LINE. HE WOULD LIKE HIS SIGNIFCANT OTHER ARANZA WITH HIM WELL IF SHE CAN COME IN EARLY ENOUGH AFTER SHE GETS OFF WORK. PATIENT IS VERY ANXIOUS AND DOES NOT LIKE THE WAITING GAME. I STATED I AM HERE FOR SUPPORT AND TO HELP WITH RESOURCES. PATIENT AGREEABLE FOR HELP AND WILL CALL CHW IF FURTHER HELP IS NEEDED. PATIENT WOULD LIKE DAILY VISITS IF POSSIBLE FROM THE CHW WHILE INPATIENT IF CHW IS AVAILABLE TO DO SO.
--- NOTE | 2021-04-26 12:45 | NUR ---
THIS RN IN PTS ROOM TO PREDOSE PT WTIH PAIN MEDS PRIOR TO PICC/ MIDLINE INSERTION. PT AGREEABLE TO PROCEDURE AND IS JUST NERVOUS ABOUT IT BEING PAINFUL.
--- NOTE | 2021-04-26 13:43 | NUR ---
UNABLE TO VISIT PT AT THIS TIME DUE TO MIDLINE BEING INSERTED. WILL CONTINUE TO FOLLOW
--- NOTE | 2021-04-26 13:52 | NUR ---
MIDLINE INSERTION NOTE: ASKED BY MED/TAX STAFF ACCOUNTANT TO EVAL PATIENT FOR POTENTIAL MIDLINE. PT HAS BEEN HOSPITALIZED SINCE 04/18/21 AND IS AWAITING TRANSFER TO [facility]. PATIENT IS ON 3 DIFFERENT ABX AND HAS BEEN GOING THROUGH IV SITES QUICKLY. AFTER REVIEWING THE CHART AND EVALUATING THE PATIENT, NO ABSOLUTE CONTRAINDICATIONS WERE IDENTIFED. PATIENT WAS INTERVIEWED AND AGREEABLE TO A MIDLINE. PT GIVES HIS VERBAL CONSENT. PATIENT'S RIGHT ARM WAS EVALUATED FIRST USING THE SITE RITE U/S AND THE RIGHT BASILIC AND BRACHIAL WERE EASILY IDENTIFIED, AND BOTH SUITABLE CANDIDATES. THE BASILIC VEIN WITH AN 18G IN IT WOULD ESTIMATE TO TAKE UP 25% OF VEIN DIAMATER. PT'S SKIN WAS PREPPED AND STERILLY DRAPED FOLLOWING [facility] RECOMMENDATIONS FOR STERILE PROCEDURE. PT'S SKIN WAS NUMBED WITH LOCAL 1% LIDOCAINE. PT'S BASILIC VEIN WAS EASILY ACCESSED USING THE POWERGLIDE PRO MIDLINE 18G. THE MIDLINE WAS ABLE TO BE ADVANCED EASILY INTO THE VEIN, AFTER THE TIP OF THE CATHETER WAS FOLLOWED UP THE VEIN FAR POSSIBLE BEFORE DELOYING THE GUIDEWIRE. BRISK, DARK, NON PULSATILE BLOOD WAS RETURNED EASILY. STERILE DRESSING, INCLUDING A BIO PATCH WAS PLACED UNDER THE DRESSING, WELL A SECURMENT DEVICE. PATIENT WAS GIVEN INSTRUCTIONS ON HOW TO CARE FOR LINE. REPORT GIVEN OT EVELYN PINON, WHO IS CARING FOR THIS PATIENT. EDUCATION MATERIAL LEFT IN PATIENT'S CHART.
--- NOTE | 2021-04-26 15:00 | NUR ---
THIS RN IN PTS ROOM TO START PTS ANTIBIOTIC. PT RESTING COMFORTABLY IN BED. PT STATES THAT HE IS DOING WELL. THIS RN ABLE TO USE NEWLY PLACED MIDLINE- DRAWS BACK BLOOD WELL AND FLUSHES SMOOTHLY.
--- NOTE | 2021-04-26 16:30 | NUR ---
this rn in pts room to start pts vanco- cefepime infusing well at this time. pt states that his pain is well controlled at this time and pts girlfriend at his bedside. pt states that he needs nothing at this time.
--- NOTE | 2021-04-26 16:52 | NUR ---
LAURA GARCÍAA IN ROOM TO GET PTS BLOOD SUGAR. PER REPORT EATING POTATO CHIPS WITH HIS GIRLFRIEND. POLLYO ALSO INFUSING AT THIS TIME MIXED IN DEXTROSE.
--- NOTE | 2021-04-26 19:33 | NUR ---
REPORT RECEIVED FROM DAY SHIFT RN. PT LYING IN BED RESTING WITH EYES CLOSED. RESPIRATIONS EVEN. CALL LIGHT IN REACH.
--- NOTE | 2021-04-26 22:00 | NUR ---
EVENING ASSESSMENT COMPLETE. SCHEDULED MEDS ADMINISTERED PER EMAR. PT REPORTS PAIN IS TOLERABLE AT THIS TIME. DENIES NAUSEA OR SOB. O2 3L/NC IN PLACE. SpO2 96%. RESPIRATIONS EVEN. MIDLINE IN RIGHT ARM FLUSHED PER PROTOCOL. BLOOD RETURN NOTED. IV ABX INFUSING WNL. PT DENIES QUESTIONS OR CONCERNS. CALL LIGHT IN REACH.
--- NOTE | 2021-04-27 01:00 | NUR ---
PT RESTING WITH EYES CLOSED. AWAKENS EASILY. REPORTS HE IS RESTING WELL. IV ABX INFUSING PER ORDER. NO FURTHER NEEDS. CALL LIGHT IN REACH.
--- NOTE | 2021-04-27 02:44 | NUR ---
UPDATE PROVIDED TO RN AT TRANSFER CENTER. NO BEDS AVAILABLE AT [facility] AT THIS TIME.
--- NOTE | 2021-04-27 06:03 | NUR ---
MORNING LABS DRAWN THROUGH MIDLINE PER PROTOCOL. VS AND I&O COMPLETE. PRN FOR ANXIETY ADMINISTERED PER EMAR. IV ABX INFUSING WNL. PT DENIES PAIN OR SOB. NO FURTHER NEEDS. CALL LIGHT IN REACH.
--- NOTE | 2021-04-27 07:42 | NUR ---
BEDSIDE REPORT FROM ABBIE PINON, PT SITTING AT BEDSIDE, HE HAD USED URINAL, HE IS ALERT AND ORIENTED, HE HAS NO REQUESTS OR CONCERNS AT THIS TIME.
--- NOTE | 2021-04-27 08:08 | NUR ---
PT WAS ASLEEP IN BED. WHITEBOARD IS UPDATED. CALL LIGHT IS WITHIN REACH. WILL CHECK BACK LATER.
--- NOTE | 2021-04-27 08:33 | NUR ---
PT SITTING UP IN BED EATING BREAKFAST, NO DISTRESS NOTED, PT ALERT AND ORIENTED. CALL LIGHT IN REACH, REPORTS NO PAIN OR NAUSEA AT THIS TIME.
--- NOTE | 2021-04-27 09:44 | NUR ---
PT LAYING IN BED SUPINE, RR EVEN, NO DISTRESS NOTED RR 18 BPM, PT SLEEPING, HE WOKE FOR ASSESSMENT THEN BACK TO SLEEP. HE HAS CONSUMED 100% OF BREAKFAST, AND FULL ENSURE.
--- NOTE | 2021-04-27 11:19 | NUR ---
[facility] CALLED FOR UPDATE. UPDATE GIVEN, SHE SAID NOT LIKELY TO HAVE BED SPACE AVAILABLE.
--- NOTE | 2021-04-27 12:21 | NUR ---
PT SITTING UP IN BED EATING LUNCH, HE REPORTS PAIN LEFT SIDE HE VOICED FEELING LIKE HE NEEDS TO COUGH SOME "JUNK UP" BUT IT HURTS TO COUGH, PRN NEB ADMINISTERED, OXYCODONE 5MG PO PRN ADMINISTERED FOR 7/10 PAIN, HE REPORTS THAT IT FELT BETTER WHEN HE SAT BACK IN BED, HE HAS GOOD AIR MOVEMENT ON LEFT LUNG LOBE. OXYGEN SATURATION 96% ON 3L N.C., NO CHANGE. NOTHER CONCERNS AT THIS TIME.
--- NOTE | 2021-04-27 13:42 | NUR ---
this biomass boiler operator offered pt a shower. pt stated they will wait until their girlfriend comes.
--- NOTE | 2021-04-27 13:45 | NUR ---
PT OFFERED ASSISTANCE TO TAKE SHOWER AT THIS TIME, PT SAID HE WANTS TO WAIT UNTIL HIS GIRLFRIEND COMES TO VISIT, HE DOESNT KNOW WHEN THAT WILL BE TODAY.
--- NOTE | 2021-04-27 14:27 | NUR ---
PT UP TO BATHROOM, TO HAVE BM, INDEPENDENT, STEADY CONTROLLED GAIT. PT REPORTS NO DIZZINESS OR LIGHT HEADEDNESS.
--- NOTE | 2021-04-27 15:54 | NUR ---
BLOOD DRAWN FROM MIDLINE FOR VANCO TROUGH SENT TO LAB. PT SITTING UP IN RECLINER EATING ICE CREAM DISH BROUGHT IN BY HIS SIGNIFICANT OTHER.
--- NOTE | 2021-04-27 16:17 | NUR ---
No change in plan for transfer to [facility].
--- NOTE | 2021-04-27 17:19 | NUR ---
PT SHOWERED, HE FELT SHORT OF BREATH TOWARDS COMPLETION, WINDY RN INTO ASSESS, EMY PINON, SHE INCREASED OXYGEN TO 4L OXYGEN SATURATION 97-100%, PT REPORTS PAIN 8/10 LEFT SIDE, OXYCODONE ADMINISTERED PRN PO. PT NOW IN BED EATING DINNER RECOVERED, VISITING WITH SIGNIFICANT OTHER AT BEDSIDE.
--- NOTE | 2021-04-27 17:52 | NUR ---
PT HAS HAD GOOD APPETITE TODAY, [employer], HE HAS REQUIRED PAIN COVERAGE TWICE THIS SHIFT. HE HAS HAD A SHOWER AND ICECREAM BROUGHT IN BY HIS SIGNIFICANT OTHER. HE HAS BEEN COOPERATIVE WITH [facility]. HE HAD AN EPISODE OF SHORTNESS OF BREATH AFTER SLEEPING, HE REPORTED HE HAD "JUNK" SECRETIONS IN HIS UPPER AIRWAY HE WAS UNABLE TO CLEAR, HE SAID IT WAS TOO PAINFUL TO COUGH HARDER. HE WAS GIVEN A PRN NEB TREATMENT AND AN OXYCODONE PRN FOR PAIN FROM COUGHING. HE HAS HAD NO NAUSEA, HE REMAINS ON 3L OXYGEN TO MAINTAIN 94% OXYGEN SATURATION AND UP. HE HAS BEEN INDEPENDENT IN ROOM WHILE S/L, MIDLINE HAS BRISK BLOOD RETURN.
--- NOTE | 2021-04-27 19:35 | NUR ---
SHIFT REPORT RECEIVED FROM FELIXNVANNIA HARDING AT BEDSIDE. pt AWAKE AND RESTING IN BED. 3LNC IN PLACE, RR EVEN AND UNLABORED. NO NEEDS VERBALIZED. MIDLINE SALINE LOCKED, SITE WNL. CALL LIGHT IN REACH.
--- NOTE | 2021-04-27 22:50 | NUR ---
SCHEDULED IV ABX INFUSING DIRECTED, MIDLINE WNL. BRISK BLOOD RETURN NOTED. PRN PAIN AND SLEEP MEDICATION BOTH PROVIDED. VSS, 3LNC REMAINS IN PLACE. pt A/OX4, COMPLIANT WITH CARE AT THIS TIME. CALL LIGHT IN REACH.
--- NOTE | 2021-04-28 00:01 | NUR ---
PATIENT IS RESTING IN BED. PATIENT DENIES ANY PAIN. SCHEDULED ABX INFUSING PER ORDER. PATIENT DENIES ANY NEEDS. CALL LIGHT IN REACH.
--- NOTE | 2021-04-28 01:30 | NUR ---
IV PUMP ALARMING, ISSUE RESOLVED. IV VANCO COMPLETE, IV CEFEPIME CONTINUES TO INFUSE DIRECTED, MIDLINE SITE WNL. NC FOUND OFF OF FACE, REPLACED AND SPOT CHECKED. SPO2 MID 90'S ON 3LNC. CALL LIGHT IN REACH.
--- NOTE | 2021-04-28 03:00 | NUR ---
pt RESTING IN BED, WITH EYES CLOSED. RR EVEN AND UNLABORED. 3LNC REMAINS IN PLACE, CALL LIGHT IN REACH.
--- NOTE | 2021-04-28 04:50 | NUR ---
pt RESTING IN BED, EYES CLOSED AND RR EVEN AND UNLABORED. 3LNC IN PLACE. MIDLINE TO RUE WNL, BRISK BLOOD RETURN NOTED. SALINE LOCKED. NO CHANGE TO ARM CIRCUMFERENCE NOTED. CALL LIGHT IN REACH.
--- NOTE | 2021-04-28 06:38 | NUR ---
scheduled iv abx infusing via midline wnl, brisk blood return noted. no change to arm circumference. dressing c/d/i. prn anxiety and prn pain pill given for 7/10 pain. call light in reach.
--- NOTE | 2021-04-28 08:00 | NUR ---
REPORT RECEIVED FROM NIGHT RN AND PT. CARE RESUMED. PT. IS ALERT AND ORIENTED TO ALL. ON 2L NC AND O2 SAT IS 97%. LUNGS DIM. IN THE BASES. MIDLINE IS SLUGGISH WITH FLUSHING AND FLUSHED WITH 20ML NC. BRISK BLOOD RETURN AFTER FLUSHING. LEFT LOBECTOMY SCAR IS PINK AND DRY. CHEST TUBE INSERTION SITE DRESSING IS CDI. .HE DENIES PAIN AT THIS TIME. DISCUSSED POC, MEDS AND SAFETY. LEFT RESTING WITH CALL LIGHT IN REACH.
--- NOTE | 2021-04-28 08:12 | NUR ---
PT SITTING UP IN BED WATCHING TV. GAVE AM CARE. PT ACCEPTED WARM CLOTH FOR FACE. WHITE BOARD UPDATED. RN STEPHANIE IN ROOM. CALL LIGHT WITHIN REACH, NO FURTHER NEEDS AT THIS TIME.
--- NOTE | 2021-04-28 09:23 | NUR ---
PT REFUSED CHAIR THIS MORNING. PT IN BED SITTING UP AND WATCHING TV. PT REFUSES CHAIR. CALL LIGHT WITHIN REACH, NO FURTHER NEEDS AT THIS TIME.
--- NOTE | 2021-04-28 12:00 | NUR ---
PT. C/O NOT GETTING BREAD WITH CHICKEN. THIS NURSE EXPLAINED TO PT. HE IS OVER HIS CARB COUNT. HE BECAME UPSET AND STATES HE WILL NOT EAT HIS CHICKEN. PT. REFUSES SUBSTITUTIONS. LEFT RESTING WITH CALL LIGHT IN REACH.
--- NOTE | 2021-04-28 12:48 | NUR ---
PT REFUSED SHOWER. CALL LIGHT WITHIN REACH, NO FURTHER NEEDS AT THIS TIME. RN STEPHANIE NOTIFIED OF PT'T REFUSAL
--- NOTE | 2021-04-28 13:54 | NUR ---
PT ASLEEP, DID NOT DISTURB. WILL CONTINUE TO FOLLOW
--- NOTE | 2021-04-28 14:23 | NUR ---
IV ABX STARTED. PT. DENIES PAIN AT THIS TIME. STATES HE IS VERY TIRED. ON 3L NC AND O2 SAT 99%. LEFT RESTING WITH CALL LIGHT IN REACH.
--- NOTE | 2021-04-28 14:31 | NUR ---
PT IN BED WATCHING TV. CALL LIGHT IN REACH, NO FURTHER NEEDS AT THIS TIME.
--- NOTE | 2021-04-28 16:22 | NUR ---
Notified by [employer] snack stewardess. Pt is now next on the transfer list.
--- NOTE | 2021-04-28 16:30 | NUR ---
PT. AMBULATING AROUND THE UNIT WITH AND FWW. ON 3L NC. DENIES SOB OR DIZZINESS.
--- NOTE | 2021-04-28 17:08 | NUR ---
PT SITTING UP IN BED WATCHING TV. IN ROOM. DINNER JUST SERVED. WILL RETURN FOR I&O'S LATER. CALL LIGHT WITHIN REACH, NO FURTHER NEEDS AT THIS TIME
--- NOTE | 2021-04-28 19:33 | NUR ---
BEDSIDE REPORT FROM STEPHANIE PINON. PT IS RESTING IN BED, ALERT AND ORIENTED. HIS ONLY REQUEST IS TO HAVE MEDS AND CARE PROVIDED EARLY POSSIBLE TONIGHT.
--- NOTE | 2021-04-28 20:00 | NUR ---
CALL FROM KEYUR RN AT [facility], SHE SAID THEY HAVE A BED FOR HIS 7C, GAVE CALL REPORT NUMBER. WILL NOTIFY ANH PINON [employer] BOX TENDER AND , [employer]N [employer]US[employer]ER NEGAR NOTIFIED.
--- NOTE | 2021-04-28 20:05 | NUR ---
PT ANXIOUS AT THIS TIME PER HIS REPORT, HR 120 BPM, CONFIRMED APICALLY, GAVE VISTRIL 25MG WILL RECHECK AND CALL MD IF NOT RESPONDING.
[2021-04-28] MEDS ORDERED: NICOTINE LOZENGE4 MG BUCCAL (20:25)
[2021-04-28] MEDS ORDERED: IPRAT-ALBUT 0.5-3 ML INH (20:25)
[2021-04-28] MEDS ORDERED: CEFEPIME HCL2 GM IV (20:25)
[2021-04-28] MEDS ORDERED: ESCITALOPRAM OX10 MG PO (20:26)
[2021-04-28] MEDS ORDERED: OXYCODONE HCL5 MG PO (20:26)
[2021-04-28] MEDS ORDERED: ENOXAPARIN40 MG/0.4 SUB-Q (20:26)
[2021-04-28] MEDS ORDERED: HYDROXYZINE PAM25 MG PO (20:27)
[2021-04-28] MEDS ORDERED: STIMULANT LAXA1 EACH PO (20:27)
[2021-04-28] MEDS ORDERED: QUETIAPINE FUMA25 MG PO ×3 (20:27)
[2021-04-28] MEDS ORDERED: PREDNISONE20 MG PO (20:28)
[2021-04-28] MEDS ORDERED: MELATONIN3 MG PO (20:28)
--- NOTE | 2021-04-28 21:15 | NUR ---
REPORT GIVEN TO [facility] FOR TRANSPORT TO [facility] AT THIS TIME. PT ALERT AND ORIENTED AT THIS TIME.
--- NOTE | 2021-04-28 21:32 | NUR ---
CALLED TO GIVE REPORT, RN UNAVAILABLE AT THIS TIME SHE WILL CALL BACK
--- NOTE | 2021-04-28 21:54 | NUR ---
REPORT GIVEN TO JESS SAUCEDA RN, AT THIS TIME, ALL QUESTIONS ANSWERED.
== END 2021-04-28 21:14 | disposition short-term general hospital (02) | DRG 177 ==
LOC: ED 06:02 → MS 20:01 → CCU 20:09 → MS 04-19 19:30
PROVIDERS: ADMIT Internal Medicine; ATTEND Internal Medicine
DX: J15.6 Pneumonia due to other Gram-negative bacteria (principal); J96.21 Acute and chronic respiratory failure with hypoxia; J44.1 Chronic obstructive pulmonary disease with (acute) exacerbation; J44.0 Chronic obstructive pulmonary disease with (acute) lower respiratory infection; C34.12 Malignant neoplasm of upper lobe, left bronchus or lung; E46 Unspecified protein-calorie malnutrition; E22.2 Syndrome of inappropriate secretion of antidiuretic hormone; Z20.822 Contact with and (suspected) exposure to COVID-19; Z66 Do not resuscitate; F17.210 Nicotine dependence, cigarettes, uncomplicated; E78.5 Hyperlipidemia, unspecified; Y95 Nosocomial condition; D50.0 Iron deficiency anemia secondary to blood loss (chronic); F39 Unspecified mood [affective] disorder; K59.00 Constipation, unspecified; R45.1 Restlessness and agitation; E86.1 Hypovolemia; G89.29 Other chronic pain; E11.9 Type 2 diabetes mellitus without complications; I25.2 Old myocardial infarction; Z98.890 Other specified postprocedural states; Z79.899 Other long term (current) drug therapy; Z79.51 Long term (current) use of inhaled steroids; Z79.84 Long term (current) use of oral hypoglycemic drugs; Z99.81 Dependence on supplemental oxygen
CPT/HCPCS: 36569; 71045; 71046; 71260; 80048; 80053; 80202; 82803; 83036; 83735; 83880; 83930; 83935; 84484; 85025; 93005; 93010; 94640; 94667; 94760; 97116; 97162; 97165; 99285-25; C1751; C9803; J0692; J1650; J1815; J1956; J2930; J3370; J7060; J7121; J7512; Q0177; Q9967; U0003